=== PATIENT | female | born 1965 | race Caucasian/White ===

== ENCOUNTER 2019-03-24 22:56 | Emergency (ER) | payer OTHER, SELFPAY ==
[2019-03-24 23:00] VITALS: BP 157/76; PULSE 92; RESP 18; TEMP 36.2; O2SAT 100
[2019-03-25 00:48] VITALS: BP 142/81; PULSE 96; RESP 20; O2SAT 99
--- NOTE | 2019-03-25 01:02 | ED.SKABFB ---
HPI - Skin/Abscess/Foreign Bdy General Chief complaint: Skin/Abscess/Foreign Body Stated complaint: rectal morton Time Seen by Provider: 03/25/19 01:01 Source: patient and RN notes reviewed Mode of arrival: ambulatory Limitations: no limitations History of Present Illness HPI narrative: A 53 y/o female presents to the ED with a constant, painful, worsening, rectal abscess beginning yesterday. She reports that walking, laying down, and sitting all aggravate the pain. She denies anything alleviating the pain. She also denies any rectal bleeding, constipation, N/V/D, ABD pain, CP, vaginal bleeding, vaginal discharge, or dysuria. complaint: abscess/boil Onset (ago): day(s) (yesterday) Location: buttocks (rectum) Pain Consistency: constant (worsening) Relieving factors: none Exacerbating factors: other (walking, laying down, and sitting) Associated symptoms: denies other symptoms Related Data Home Medications Medication Instructions Recorded Confirmed simvastatin 20 mg tablet 20 mg PO DAILY 01/13/19 Allergies Allergy/AdvReac Type Severity Reaction Status Date / Time adhesive tape Allergy Mild Rash Verified 03/17/19 10:18 levofloxacin Allergy Unknown Tremor Verified 03/17/19 10:18 Review of Systems Review of Systems: All systems reviewed & are unremarkable except as noted in HPI and below Cardiovascular: Cardiovascular: Denies chest pain Gastrointestinal: Gastrointestinal: Denies abdominal pain, Denies hematochezia, Denies constipation, Denies diarrhea, Denies nausea, Denies vomiting and Reports other (painful rectal abscess) Genitourinary: Genitourinary: Denies abnormal vaginal bleeding, Denies dysuria and Denies vaginal discharge [facility] Past Medical History Medical History (Updated 03/25/19 @ 01:47 by Manuel May MD) Anxiety Body mass index (BMI) of 50-59.9 in adult (11/25/18) Elevated hemoglobin Essential hypertension Hyperlipidemia Recurrent candidiasis of vagina Uncontrolled type 2 diabetes mellitus with hyperglycemia Surgical History Surgical History (Updated 03/25/19 @ 01:15 by Russel Guillen) History of hysterectomy Hx of laparoscopic gastric banding Hx of toe surgery Previous section Status post panniculectomy Family History Family History Mother Family history of thyroid disease Diabetes mellitus Family history of malignant neoplasm of thyroid Father Carcinoma of colon Social History Social History Smoking status: Never smoker Second hand tobacco smoke exposure: No Alcohol intake: never Gender identity (if verbalized by the patient): Female Exam Narrative: Exam Narrative: GENERAL: Well-appearing, obese, and in no acute distress. HEAD: Normocephalic, atraumatic. Rectal: External hemorrhoid that is nonthrombosed and nonbleeding at the 12 o'clock position when laying in the right lateral decubitus position. No cellulitis/induration/tenderness of the buttock. Hemorrhoid itself is tender to touch. EXTREMITIES: Normal range of motion. Normal strength. SKIN: Warm, dry, no rash. NEURO: Alert and oriented x3. PSYCH: Normal mood and affect. Course Course Emergency Course: Informed of diagnosis and treatment plan. Patient verbalized understanding. Vital Signs Vital signs: Vital Signs Temperature 97.2 F L 03/24/19 23:00 Pulse Rate 92 03/24/19 23:00 Respiratory Rate 18 03/24/19 23:00 Blood Pressure 157/76 H 03/24/19 23:00 Pulse Oximetry 100 03/24/19 23:00 Temperature 97.2 F L 03/24/19 23:00 Pulse Rate 96 03/25/19 00:48 Respiratory Rate 20 03/25/19 00:48 Blood Pressure 142/81 H 03/25/19 00:48 Pulse Oximetry 99 03/25/19 00:48 Discharge Plan Discharge Clinical Impression: External hemorrhoids Patient Disposition: Home, Self-Care Condition: Stable Instructions: Hemorrhoids (ED) Additional Instructions: Return to the ER if you have
[2019-03-25 02:07] VITALS: BP 132/71; PULSE 70; RESP 18; O2SAT 99
== END 2019-03-25 02:10 | disposition home or self-care (01) ==
PROVIDERS: Emergency Provider Emergency Medicine; PCP Family Medicine
DX: K64.4 Residual hemorrhoidal skin tags (principal); I10 Essential (primary) hypertension; E78.5 Hyperlipidemia, unspecified; Z98.84 Bariatric surgery status; F41.9 Anxiety disorder, unspecified
CPT/HCPCS: 99283

== ENCOUNTER 2019-06-01 15:48 | Outpatient (CLI) | payer OTHER, SELFPAY ==
--- NOTE | ~2019-06-01 | XR_ITS ---
EXAMINATION: XR knee LT 3V EXAM DATE: 06/01/2019 16:22 INDICATION: No known recent injury provided at this time. Pain of the left knee. TECHNIQUE: Three projections of the left knee. There is no prior study for comparison. FINDINGS: No evidence osteochondral defect or joint body in the left knee joint. There is moderate left knee primary osteoarthritis. There are no acute fractures or dislocations identified. There is no subcutaneous gas. The soft tissue is unremarkable. There are no radiopaque foreign bodies. IMPRESSION: Moderate left knee osteoarthritis. Reviewed, dictated and finalized at location A.
== END 2019-06-01 15:49 | disposition home or self-care (01) ==
LOC: ANHIMG 15:50
PROVIDERS: PCP Family Medicine; Visit Provider Nurse Practitioner Family
DX: M25.562 Pain in left knee (principal); M17.12 Unilateral primary osteoarthritis, left knee
CPT/HCPCS: 73562

== ENCOUNTER 2020-04-02 09:15 | Outpatient (CLI) | payer OTHER, SELFPAY ==
--- NOTE | ~2020-04-02 | XR_ITS ---
XR foot RT 2V DATE: 04/02/2020 09:39 INDICATION: Pain at fifth toe. No injury. TECHNIQUE: AP and lateral views COMPARISON: None FINDINGS: There is plantar and posterior calcaneal enthesopathy. There is mild osteoarthritic change at the first metatarsophalangeal joint. No fracture or dislocation, periosteal reaction or bone destruction is evident. Extensive soft tissue calcification is noted in the lower leg. IMPRESSION: Extensive lower leg soft tissue calcification Plantar and posterior calcaneal enthesopathy Osteoarthritic change at first metatarsophalangeal joint Reviewed, dictated and finalized at location A. 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
[2020-04-02 09:50] LABS: Basophils Absolute Auto 0.1 K/mm3 (0.0-0.1); Basophils Percent Auto 0.9 % (0.2-1.2); Eosinophils Absolute Auto 0.4 K/mm3 (0-0.3); Eosinophils Percent Auto 5.6 % (0-4.4); Hematocrit 44.7 % (37.0-47.0); Hemoglobin 14.9 g/dL (12.0-15.0); Immature Granulocyte Absolute 0.05 K/mm3 (0.00-0.031); Immature Granulocyte Percent A 0.6 % (0-0.5); Lymphocytes Absolute Auto 2.25 K/mm3 (0.9-3.2); Lymphocytes Percent Auto 28.8 % (18.3-44.2); Mean Corpuscular HGB Conc 33.3 g/dl (32-36); Mean Corpuscular Hemoglobin 28.7 pg (26-34); Mean Platelet Volume 9.4 fl (7.4-10.4); Monocytes Absolute Auto 0.4 K/mm3 (0.1-0.6); Monocytes Percent Auto 4.6 % (2.6-8.5); Neutrophils Absolute Auto 4.7 K/mm3 (1.3-6.7); Neutrophils Percent Auto 59.5 % (45.5-73.1); Platelet Count Result 331 k/mm3 (150-375); Red Cell Distribution Width 13.4 % (11.5-14.5); White Blood Count 7.8 K/mm3 (4.5-10.0)
[2020-04-02 10:35] LABS: Uric Acid 3.3 mg/dL (2.5-7.5)
== END 2020-04-02 09:16 | disposition home or self-care (01) ==
PROVIDERS: PCP Family Medicine; Visit Provider Nurse Practitioner Family
DX: S91.106A Unspecified open wound of unspecified lesser toe(s) without damage to nail, initial encounter (principal); M19.071 Primary osteoarthritis, right ankle and foot
CPT/HCPCS: 36415; 73620; 84550; 85025

== ENCOUNTER 2020-06-11 07:59 | Emergency (ER) | payer OTHER, SELFPAY ==
--- NOTE | ~2020-06-11 | CT_ITS ---
EXAMINATION: CT brain wo con INDICATION: Head injury COMPARISON: None TECHNIQUE: Standard unenhanced head CT. The dose-length product (DLP) was 605.33 mGy-cm. The mA was a djusted according to patient size. Iterative reconstruction technique was employed. FINDINGS: There is no intracranial hemorrhage, acute infarction, or abnormal mass lesion. The ventric les are normal. There is no abnormal mass effect or midline shift. The camp-white matter differentiat ion is normal. The basal cisterns are patent. The orbits are normal. There are a few scattered scalp soft tissue calcifications. There is mild mucosal thickening of the paranasal sinuses. IMPRESSION: 1. No acute intracranial abnormality. Reviewed, dictated and finalized at location A.
[2020-06-11 08:10] VITALS: BP 150/82; PULSE 69; RESP 18; TEMP 36.1; O2SAT 99
[2020-06-11] MEDS: HYDROcodone/acetaminophen (*CRX) 5-325 MG TABLET 1 TAB PO (08:27)
--- NOTE | 2020-06-11 09:47 | ED.GENADULT ---
HPI - General Adult General Chief complaint: Fall Stated complaint: fall/headache/nausea Time Seen by Provider: 06/11/20 08:05 History of Present Illness HPI narrative: Patient is a 54-year-old female who presents ER with headache as well as nausea. Patient had a slip and fall from standing while walking down the hallway 2 days ago. She fell and struck her head. Did not lose consciousness. Since then the symptoms have persisted. Symptoms are worse if she is working or looking in bright light. No improvement with ibuprofen or Tylenol. No fevers or chills or sweats. No change in vision. She has no numbness or tingling in extremity. She does not take any blood thinners. Related Data Home Medications Medication Instructions Recorded Confirmed sitagliptin 100 mg tablet 100 mg PO DAILY 04/02/20 04/02/20 Allergies Allergy/AdvReac Type Severity Reaction Status Date / Time adhesive tape Allergy Mild Rash Verified 06/11/20 08:19 levofloxacin AdvReac Unknown Tremor Verified 06/11/20 08:19 Review of Systems Review of Systems: All systems reviewed & are unremarkable except as noted in HPI and below Constitutional: Constitutional: Denies chills, Denies fever(s) and Denies weakness Eyes: Eyes: Denies change in vision and Reports photophobia Gastrointestinal: Gastrointestinal: Reports nausea and Denies vomiting Neurologic: Denies dizziness, Denies syncope, Reports headache(s), Denies focal weakness and Denies numbness PMF Past Medical History Medical History Anxiety Body mass index (BMI) of 50-59.9 in adult (11/25/18) Elevated hemoglobin Essential hypertension Hyperlipidemia Morbid (severe) obesity due to excess calories Recurrent candidiasis of vagina Uncontrolled type 2 diabetes mellitus with hyperglycemia Surgical History Surgical History History of hysterectomy Hx of laparoscopic gastric banding Hx of toe surgery Previous section Status post panniculectomy Family History Family History Mother Family history of thyroid disease Diabetes mellitus Family history of malignant neoplasm of thyroid Stage 4 chronic kidney disease CHF (congestive heart failure) Anemia Father Carcinoma of colon Sibling No problems noted. 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 HEAD: Normocephalic, atraumatic. EYES: PERRL and EOMI. CHEST: Clear to auscultation. No respiratory distress. HEART: Regular rate and rhythm. Normal peripheral pulses. EXTREMITIES: Normal range of motion. No edema. NEURO: Alert and oriented x3. Clear speech. PSYCH: Normal mood and affect. Course Course Emergency Course: Unremarkable evaluation. Discharge home. Vital Signs Vital signs: Vital Signs Temperature 97 F L 06/11/20 08:10 Pulse Rate 69 06/11/20 08:10 Respiratory Rate 18 06/11/20 08:10 Blood Pressure 150/82 H 06/11/20 08:10 Pulse Oximetry 99 06/11/20 08:10 Temperature 97 F L 06/11/20 08:10 Pulse Rate 57 L 06/11/20 09:54 Respiratory Rate 18 06/11/20 09:54 Blood Pressure 135/81 06/11/20 09:54 Pulse Oximetry 100 06/11/20 09:54 Medical Decision Making Vital Signs Vital Signs: Vital Signs Temperature 97 F L 06/11/20 08:10 Pulse Rate 69 06/11/20 08:10 Respiratory Rate 18 06/11/20 08:10 Blood Pressure 150/82 H 06/11/20 08:10 Pulse Oximetry 99 06/11/20 08:10 Temperature 97 F L 06/11/20
[2020-06-11 09:54] VITALS: BP 135/81; PULSE 57; RESP 18; O2SAT 100
== END 2020-06-11 09:55 | disposition home or self-care (01) ==
PROVIDERS: Emergency Provider Emergency Medicine; PCP Family Medicine
DX: S06.0X0A Concussion without loss of consciousness, initial encounter (principal); F41.9 Anxiety disorder, unspecified; I10 Essential (primary) hypertension; E11.9 Type 2 diabetes mellitus without complications; W01.0XXA Fall on same level from slipping, tripping and stumbling without subsequent striking against object, initial encounter
CPT/HCPCS: 70450; 99284; A9270

== ENCOUNTER 2022-07-23 14:42 | Outpatient (CLI) | payer OTHER, SELFPAY ==
--- NOTE | ~2022-07-23 | US_ITS ---
EXAMINATION: US venous doppler UE RT DATE: 07/23/2022 15:14 INDICATION: Palpable lump TECHNIQUE: De La Paz scale images with and without compression and Doppler images of the right upper extre mity veins were obtained. COMPARISON: None. FINDINGS: The right internal jugular vein, subclavian vein, axillary vein, brachial veins, basilic vein, cephal ic vein, radial vein, and ulnar vein are patent. Adjacent to the right radial artery there is a hypoe choic mass measuring 1.4 x 1.2 x 1.1 cm with marginal vascularity, possibly small hematoma. IMPRESSION: 1. Patent right upper extremity veins. No evidence of deep venous thrombosis. 2: Small hypoechoic mass measuring up to 1.4 cm adjacent to the radial artery, suspicious for hematom a or seroma. Recommend follow-up ultrasound as clinically indicated. Reviewed, dictated and finalized at location . IMPRESSION: 1. Patent right upper extremity veins. No evidence of deep venous thrombosis. 2: Small hypoechoic mass measuring up to 1.4 cm adjacent to the radial artery, suspicious for hematoma or seroma. Recommend follow-up ultrasound as clinically indicated.
== END 2022-07-23 14:43 | disposition home or self-care (01) ==
LOC: ANHIMG 14:44
PROVIDERS: PCP Family Medicine; Visit Provider Orthopaedic Surgery
DX: M25.531 Pain in right wrist (principal); I77.89 Other specified disorders of arteries and arterioles
CPT/HCPCS: 93971

== ENCOUNTER 2022-08-07 16:12 | Outpatient (CLI) | payer OTHER, SELFPAY ==
--- NOTE | ~2022-08-07 | MR_ITS ---
EXAMINATION: MR wrist RT wo/w con DATE: 08/07/2022 17:15 INDICATION: Right wrist mass TECHNIQUE: Magnetic resonance imaging (MRI) of the right wrist was performed without intravenous cont rast. Sequences performed include axial, sagittal and coronal T1-weighted FSE and T2-weighted FS FSE, axial T1-weighted FS FSE and axial, sagittal and coronal T1-weighted FS FSE. COMPARISON: None FINDINGS: Intrinsic ligaments: The scapholunate and lunotriquetral ligaments are normal. Triangular fibrocartilage complex (TFCC): The triangular fibrocartilage and its radial, foveal and styloid attachments are normal. Partial tear of the dorsal radioulnar ligament. The volar radioulnar ligament is normal. The extensor carpi ulnar is tendon sheath is normal. Extensor wrist: Extensor tendons of the wrist are normal. Small amount of fluid in the second dorsal compartment at t he level of the wrist joint consistent with mild tenosynovitis. Flexor wrist: The flexor tendons of the wrist are normal. There appears to be significant compression of the median nerve at the carpal tunnel with significant decrease in the cross-sectional area of the nerve the le tahmina of the tunnel relative to the nerve both proximally and distally. Guyon's canal: Guyon's canal including the ulnar nerve and artery are normal. Bones/other: 3 mm ulnar minus variance. Bone alignment is normal. No fracture, erosions, avascular necrosis or abn ormal marrow replacing process. Mild osteoarthritis at the distal radioulnar, radiocarpal, midcarpal, triscaphe and first carpal metacarpal joints. Mild subarticular edema-like signal change at the boy te along its midcarpal joint and scaphoid articular surfaces. Low signal intensity bone island at the radial styloid process. There is a large multilobulated ganglion cyst arising from the midcarpal joint which tracks proximall y and radially along the volar radiolunate and radioscaphoid capitate ligaments and into the subcutan eous tissues at the volar/radial aspect of the wrist. The cyst extends over a region measuring approx imately 2.3 cm medial collateral and 1.1 x 1.2 cm in maximal orthogonal dimensions. There is curvilin ear synovial enhancement along the day and internal septations of the cyst. This underlies the kiley er indicating the mass of concern. No solid enhancing soft tissue component or other abnormally enhan cing lesions identified. IMPRESSION: 1. 2.3 x 1.1 x 1.2 cm multilobulated ganglion cyst which appears to arise from the midcarpal joint an d extends volar to the radial styloid process underlying the marker indicating the lesion of concern. 2. Partial tear of the dorsal radioulnar ligament of the triangular fibrocartilage complex. 3. Mild tenosynovitis in the second dorsal compartment surrounding the normal extensor carpi radialis longus and brevis tendons. 4. Significant thinning of the median nerve at the level of the carpal tunnel which could be seen in the setting of carpal tunnel syndrome. Correlate for signs/symptoms of carpal tunnel syndrome. 5. Mild polyarticular osteoarthritis at the right wrist and carpus. Reviewed, dictated and finalized at location A. IMPRESSION: 1. 2.3 x 1.1 x 1.2 cm multilobulated ganglion cyst which appears to arise from the midcarpal joint and extends volar to the radial styloid process underlying the marker indicating the lesion of concern. 2. Partial tear of the dorsal radioulnar ligament of the triangular fibrocartil age complex. 3. Mild tenosynovitis in the second dorsal compartment surrounding the normal e xtensor carpi radialis longus and brevis tendons. 4. Significant thinning of the median nerve at the level of the carpal tunnel w hich could be seen in the setting of carpal tunnel syndrome. Correlate for sign s/symptoms of
== END 2022-08-07 16:13 | disposition home or self-care (01) ==
PROVIDERS: PCP Family Medicine; Visit Provider Orthopaedic Surgery
DX: M67.431 Ganglion, right wrist (principal); S63.591A Other specified sprain of right wrist, initial encounter; M65.9 Synovitis and tenosynovitis, unspecified; M15.9 Polyosteoarthritis, unspecified
CPT/HCPCS: 73223; A9577

== ENCOUNTER 2022-08-26 08:00 | Outpatient (CLI) | payer OTHER, SELFPAY ==
--- NOTE | ~2022-08-26 | US_ITS ---
EXAMINATION: US art doppler w press UE BI DATE: 08/26/2022 08:58 INDICATION: Peripheral vascular disease. Pain in right wrist. TECHNIQUE: Segmental pressures and plethysmographic and Doppler waveforms of the upper extremity patricia sheyla were obtained. COMPARISON: None. FINDINGS: Right and left brachial artery pressures of 137 mm Hg and 147 mm Hg, respectively, are concordant (no rmal difference <= 30 mmHg). The right finger:brachial systolic pressure ratio is 0.93 (normal > 0.8) . Arterial Doppler waveforms demonstrate normal upstroke (normal upstroke < 0.2 s). The left finger:brachial systolic pressure ratio is 0.78. Arterial Doppler waveforms demonstrate norm al upstroke. IMPRESSION: 1. No significant right-sided arterial occlusive disease. 2. Mildly decreased left finger:brachial artery pressure index, consistent with left-sided arterial o cclusive disease. Reviewed, dictated and finalized at location A. IMPRESSION: 1. No significant right-sided arterial occlusive disease. 2. Mildly decreased left finger:brachial artery pressure index, consistent with left-sided arterial occlusive disease.
== END 2022-08-26 08:01 | disposition home or self-care (01) ==
PROVIDERS: PCP Family Medicine; Visit Provider Orthopaedic Surgery
DX: M25.531 Pain in right wrist (principal)
CPT/HCPCS: 93923

== ENCOUNTER 2022-12-22 12:39 | Emergency (ER) | payer OTHER, SELFPAY ==
[2022-12-22] VITALS (14 sets, daily range): BP systolic 133–150; BP diastolic 63–76; PULSE 68–84; RESP 13–24; TEMP 36.2; O2SAT 96–100
--- NOTE | ~2022-12-22 | US_ITS ---
EXAMINATION: US abdomen limited DATE: 12/22/2022 18:36 INDICATION: abdominal pain TECHNIQUE: Multiple grayscale and Doppler ultrasound images of limited portions of the abdomen were o btained. COMPARISON: CT abdomen and pelvis same date. FINDINGS: The visualized portions of the pancreas are normal. The liver is enlarged with increased ec hogenicity and normal echotexture. No surface nodularity. Normal hepatopetal flow in the main portal vein. 7 mm gallbladder polyp, no follow-up suggested at this time. The gallbladder is otherwise chrystal l with no abnormal wall thickening, pericholecystic fluid or stones. The common bile duct measures 4 mm. There was no sonographic [place] sign. IMPRESSION: Hepatic steatosis. No sonographic evidence of cholecystitis. 7 mm gallbladder polyp, for which no further follow-up is suggested at this time. Reviewed, dictated and finalized at location K. LY ROOM CLERK IMPRESSION: Hepatic steatosis. No sonographic evidence of cholecystitis. 7 mm gallbladder polyp, for which no further follow-up is suggested at this angela eThao
--- NOTE | ~2022-12-22 | CT_ITS ---
EXAMINATION: CT abdomen pelvis w con DATE: 12/22/2022 15:54 INDICATION: Abdominal pain TECHNIQUE: Computed tomography (CT) of the abdomen and pelvis was performed with 100 CC Omnipaque 350 intravenous contrast. Automated exposure control and iterative reconstruction technique were employe d. Exam dose: 1625.14 mGy-cm total exam DLP. COMPARISON: None. FINDINGS: The lung bases are clear. Normal heart size. No pericardial or pleural effusion. Diffuse hepatic steatosis. No hepatic space-occupying mass lesion is evident. The gallbladder is pres ent. Variable density within the gallbladder suggests possible cholelithiasis; gallbladder ultrasound is recommended for more definitive confirmation or exclusion of gallstones. No gallbladder wall thic kening or pericholecystic fluid or fat stranding is evident. No bile duct dilatation. No pancreatic mass lesion, calcification or pancreatic duct dilatation. Normal splenic size. Normal morphology of the adrenal glands. No renal mass lesion. No urinary tract calculus or hydroureteronephrosis. Normal caliber of the abdominal aorta. No intraperitoneal or retroperitoneal or pelvic mass lesion or adenopathy or ascites. Status post hysterectomy. The urinary bladder is unremarkable. Unremarkable left ovary. Percutaneous inflatable cuff around the proximal stomach. No bowel obstruction, bowel wall thickening, pneumatosis or intraperitoneal free air. Multiple surgical clips along the anterior lower abdominal wall. Multiple small fat-containing ventra l abdominal wall hernias. Diffuse idiopathic skeletal hyperostosis of the thoracic spine. Multi-level degenerative disc disease of the lumbar spine. Degenerative changes apophyseal joints is noted at multiple levels with grade 1 anterolisthesis at L4-5. IMPRESSION: Diffuse hepatic steatosis Possible cholelithiasis; consider gallbladder ultrasound for more definitive confirmation or exclusio n of gallstones Status post hysterectomy Multiple small ventral lower abdominal wall fat-containing hernias Reviewed, dictated and finalized at [facility]. Reviewed, dictated and finalized at location [facility]. ING INSPECTOR IMPRESSION: Diffuse hepatic steatosis Possible cholelithiasis; consider gallbladder ultrasound for more definitive co nfirmation or exclusion of gallstones Status post hysterectomy Multiple small ventral lower abdominal wall fat-containing hernias
[2022-12-22 13:03] LABS: Basophils Absolute Auto 0.1 K/mm3 (0.0-0.1); Basophils Percent Auto 0.5 % (0.2-1.2); Eosinophils Absolute Auto 0.4 K/mm3 (0-0.3); Eosinophils Percent Auto 2.9 % (0-4.4); Hematocrit 43.6 % (37.0-47.0); Hemoglobin 14.2 g/dL (12.0-15.0); Immature Granulocyte Absolute 0.07 K/mm3 (0.00-0.031); Immature Granulocyte Percent A 0.5 % (0-0.5); Lymphocytes Absolute Auto 2.25 K/mm3 (0.9-3.2); Lymphocytes Percent Auto 15.8 % (18.3-44.2); Mean Corpuscular HGB Conc 32.6 g/dl (32-36); Mean Corpuscular Hemoglobin 28.8 pg (26-34); Mean Corpuscular Volume 88.4 fl (80-100); Mean Platelet Volume 9.3 fl (7.4-10.4); Monocytes Absolute Auto 0.8 K/mm3 (0.1-0.6); Monocytes Percent Auto 5.7 % (2.6-8.5); Neutrophils Absolute Auto 10.6 K/mm3 (1.3-6.7); Neutrophils Percent Auto 74.6 % (45.5-73.1); Platelet Count Result 307 k/mm3 (150-375); Red Blood Count 4.93 M/mm3 (4.2-5.4); Red Cell Distribution Width 14.4 % (11.5-14.5); White Blood Count 14.3 K/mm3 (4.5-10.0)
[2022-12-22 13:12] LABS: Alanine Aminotransferase 25 U/L (6-35); Alkaline Phosphatase 103 U/L (38-126); Anion Gap 10 mmol/L (8-16); Aspartate Amino Transferase 22 U/L (14-36); Bilirubin,Total 0.7 mg/dL (0.2-1.3); Blood Urea Nitrogen 14 mg/dL (7-17); Carbon Dioxide 23 mmol/L (22-30); Chloride 102 mmol/L (98-107); Estimated CRCL calculation 138 ml/min; Estimated Glomerular Filt Rate > 60; Glucose 197 mg/dL (65-110); Lipase 101 U/L (23-300); Potassium 4.4 mmol/L (3.4-5.0); Sodium 135 mmol/L (137-145)
--- NOTE | 2022-12-22 14:30 | ED.GENADULT ---
HPI - General Adult General Chief complaint: Abdominal Pain <Roxane Apodaca APRN - Last Filed: 12/22/22 14:32> Stated complaint: abd pain, n/d <Roxane Apodaca GI PHYSICIAN - Last Filed: 12/22/22 14:32> Time Seen by Provider: 12/22/22 21:07 <Roxane Apodaca GI PHYSICIAN - Last Filed: 12/22/22 14:32> Source: patient <Ariadna Man PA-C - Last Filed: 12/22/22 23:20> Mode of arrival: ambulatory <Ariadna Man PA-C - Last Filed: 12/22/22 23:20> Limitations: no limitations <Ariadna Man PA-C - Last Filed: 12/22/22 23:20> History of Present Illness HPI narrative: Kateryna Wei is a 57 y/o female who reports she was in her normal state of health until she woke up this AM wtih severe lower abdominal pain with hematuria/ reports nausea/ no vomiting. Last BM was today and was normal. Denies fevers but reports feeling cold. Reports her lower abdominal pain has been getting worse since this morning. <Roxane Laurent June - Last Filed: 12/22/22 14:32> Kateryna Wei is a 57 y/o female who reports she was in her normal state of health until she woke up this AM wtih severe lower abdominal pain with hematuria/ reports nausea/ no vomiting. Last BM was today and was normal. Denies fevers but reports feeling cold. Reports her lower abdominal pain has been getting worse since this morning. Describes pain as a burning sensation. Denies rectal bleeding, vaginal bleeding. She has not taken anything for pain. <Ariadna Man PA-C - Last Filed: 12/22/22 23:20> Related Data Home medications: Home Medications Medication Instructions Recorded Confirmed nystatin 100,000 unit/gram topical 1 applic topical TID PRN 07/21/22 11/02/22 ointment ubrogepant 100 mg tablet (Ubrelvy) 100 mg PO ONCE PRN 07/21/22 11/02/22 <Roxane Apodaca APRN - Last Filed: 12/22/22 14:32> Allergies/adverse reactions: Allergies Allergy/AdvReac Type Severity Reaction Status Date / Time adhesive tape Allergy Mild Rash Verified 12/22/22 12:42 milk Allergy Unknown Unknown Verified 12/22/22 12:42 levofloxacin AdvReac Unknown Tremor Verified 12/22/22 12:42 <Roxane Apodaca, GI PHYSICIAN - Last Filed: 12/22/22 14:32> Review of Systems Review of Systems: CONSTITUTIONAL: Denies fever, chills, or sweats. CARDIOVASCULAR: Denies chest pain, palpitations, or edema. RESPIRATORY: Denies cough or dyspnea. GASTROINTESTINAL: See HPI GENITOURINARY: See HPI. SKIN: Denies rash or itching. MUSCULOSKELETAL: Denies back pain, joint pain, or myalgia. <Ariadna Man PA-C - Last Filed: 12/22/22 23:20> All systems reviewed & are unremarkable except as noted in HPI and below <Ariadna Man PA-C - Last Filed: 12/22/22 23:20> [facility] Past Medical History Medical History: Medical History Anxiety Arthritis BMI 45.0-49.9, adult Body mass index (BMI) of 50-59.9 in adult (11/25/18) Diabetes Elevated hemoglobin Essential hypertension Ganglion cyst of volar aspect of right wrist Hyperlipidemia Morbid (severe) obesity due to excess calories Recurrent candidiasis of vagina Screen for colon cancer Uncontrolled type 2 diabetes mellitus with hyperglycemia <Roxane Laurent June,N - Last Filed: 12/22/22 14:32> Surgical History Surgical History: Surgical History H/O lumpectomy History of hysterectomy Hx of laparoscopic gastric banding Hx of toe surgery Previous section Status post panniculectomy <Roxane Apodaca, GI PHYSICIAN - Last Filed: 12/22/22 14:32> Family History Family History: Family History Mother Family history of thyroid disease Diabetes mellitus Family history of malignant neoplasm of thyroid Stage 4 chronic kidney disease CHF (congestive heart failure) Anemia Cancer Hypertension Father Carcinom
[2022-12-22 15:52] LABS: Lactic Acid Reflex 1.7 mmol/L (0.7-2.0)
[2022-12-22 16:05] LABS: Bacteria Urine 4+ /hpf; Budding Yeast Urine Present /hpf; Need Manual Microscopic Reviewed; Non Pathogenic Casts 0-2; RBC Urine >100 /hpf (0-2); Squamous Epithelial Cell Urine Occasional /hpf (Few); WBC Urine >100 /hpf
[2022-12-22 16:06] LABS: Appearance Urine Turbid (Clear); Bilirubin Urine 1+ (Negative); Blood Urine 3+ (Negative); Glucose Urine UA Trace mg/dL (Negative); Ketones Urine Negative (Negative); Leukocyte Esterase Ur 2+ LEU/UL (Negative); Nitrate Urine Positive (Negative); Protein Urine 2+ mg/dL (Negative); Specific Grav Ur 1.022 (1.001-1.035); pH Urine 5.5 (5.0-9.0)
[2022-12-22 16:07] LABS: Add Urine Microscopic? YES; Color Urine Dark Yellow (Yellow)
--- NOTE | 2022-12-22 21:51 | ED.ABDPAIN ---
HPI - Abdominal Pain General Chief Complaint: Abdominal Pain Stated Complaint: abd pain, n/d Time Seen by Provider: 12/22/22 21:07 Source: patient Mode of arrival: ambulatory Limitations: no limitations Related Data Home Medications Medication Instructions Recorded Confirmed nystatin 100,000 unit/gram topical 1 applic topical TID PRN 07/21/22 11/02/22 ointment ubrogepant 100 mg tablet (Ubrelvy) 100 mg PO ONCE PRN 07/21/22 11/02/22 Allergies Allergy/AdvReac Type Severity Reaction Status Date / Time adhesive tape Allergy Mild Rash Verified 12/22/22 12:42 milk Allergy Unknown Unknown Verified 12/22/22 12:42 levofloxacin AdvReac Unknown Tremor Verified 12/22/22 12:42 PMF Past Medical History Medical History (Updated 11/02/22 @ 18:04 by Charles Sadler MD) Anxiety Arthritis BMI 45.0-49.9, adult Body mass index (BMI) of 50-59.9 in adult (11/25/18) Diabetes Elevated hemoglobin Essential hypertension Ganglion cyst of volar aspect of right wrist Hyperlipidemia Morbid (severe) obesity due to excess calories Recurrent candidiasis of vagina Screen for colon cancer Uncontrolled type 2 diabetes mellitus with hyperglycemia Surgical History Surgical History H/O lumpectomy History of hysterectomy Hx of laparoscopic gastric banding Hx of toe surgery Previous section Status post panniculectomy Family History Family History Mother Family history of thyroid disease Diabetes mellitus Family history of malignant neoplasm of thyroid Stage 4 chronic kidney disease CHF (congestive heart failure) Anemia Cancer Hypertension Father Carcinoma of colon Cancer Sibling Skin cancer Cancer Grandparent Cancer Family history of thyroid disease Social History Social History Smoking status: Never smoker Second hand tobacco smoke exposure: No Alcohol intake: never Substance use: never Substance use type: does not use Lack of Transportation: No Lack of Food: Never True Current Housing: I Have Housing Concerned About Future Housing: No Difficulty Paying Gas/Electric Bills: YES Difficulty Paying for Meds: YES Currently Unemployed: No Education: Associate Degree Difficulty w/ Childcare or Family Care: No Living arrangements: with family Occupation/Education: occupation 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 (if verbalized by the patient): Female Course Vital Signs Vital signs: Vital Signs Temperature 97.1 F L 12/22/22 12:40 Pulse Rate 76 12/22/22 12:40 Respiratory Rate 16 12/22/22 12:40 Blood Pressure 150/76 H 12/22/22 12:40 Pulse Oximetry 100 12/22/22 12:40 Oxygen Delivery Room Air 12/22/22 12:40 Temperature 97.1 F L 12/22/22 12:40 Pulse Rate 79 12/22/22 21:16 Respiratory Rate 21 H 12/22/22 21:16 Blood Pressure 139/66 12/22/22 21:16 Pulse Oximetry 97 12/22/22 21:16 Oxygen Delivery Room Air 12/22/22 12:40 MDM - Abdominal Pain Lab Data 12/22/22 12:55 12/22/22 12:55 Labs: Lab Results 12/22/22 12/22/22 Range/Units 12:55 15:31 WBC 14.3 H (4.5-10.0) K/mm3 RBC 4.93 (4.2-5.4) M/mm3 Hgb 14.2 (12.0-15.0) g/dL Hct 43.6 (37.0-47.0) % MCV 88.4 (80-100) fl MCH 28.8 (26-34) pg MCHC 32.6 (32-36) g/dl RDW 14.4 (11.5-14.5) % Plt Count 307 (150-375) k/mm3 MPV 9.3 (7.4-10.4) fl Immature Gran % (Auto) 0.5 (0-0.5) % Neut % (Auto) 74.6 H (45.5-73.1) % Lymph % (Auto) 15.8 L (18.3-44.2) % Valley % (Auto) 5.7 (2.6-8.5) % Eos % (Auto) 2.9 (0-4.4) % Baso % (Auto) 0.5 (0.2-1.2) % Lymph # (Auto) 2.25 (0.9-3.2) K/mm3 Valley # (Auto) 0.8 H (0.1-0.6) K/mm3 Eos # (Auto) 0.4 H (0-0.3) K/mm3
[2022-12-22] MEDS: ONDANSETRON INJ 4 MG/2 ML VIAL IV PUSH (21:58)
[2022-12-22] MEDS: MORPHINE SULFATE (*CRX) 4 MG/ML INJ IV PUSH (21:58)
[2022-12-22] MEDS: SODIUM CHLORIDE 0.9% IV 1,000 ML 999 ML IV CONT (21:59)
--- NOTE | 2022-12-22 23:03 | PC.NURSE ---
pt care and report given to REBEKAH Desai. all questions answered.
== END 2022-12-23 00:15 | disposition home or self-care (01) ==
PROVIDERS: Emergency Medicine; Nurse Practitioner Family; Emergency Provider Physician Assistant; PCP Family Medicine
DX: N30.01 Acute cystitis with hematuria (principal); R10.30 Lower abdominal pain, unspecified; I10 Essential (primary) hypertension; E78.5 Hyperlipidemia, unspecified; E11.9 Type 2 diabetes mellitus without complications
CPT/HCPCS: 36415; 74177; 76705; 80053; 81001; 83605; 83690; 85025; 87077; 87086; 87186; 96361; 96365; 96375; 99284; J0696; J2270; J2405; J7030; Q9967

== ENCOUNTER 2023-02-16 16:05 | Emergency (ER) | payer OTHER, SELFPAY ==
--- NOTE | ~2023-02-16 | XR_ITS ---
EXAM: XR hand LT min 3V, XR forearm LT 2V DATE: 02/16/2023 16:28 HISTORY: fall this A.M., left hand pain . COMPARISON: None available. FINDINGS: Normal mineralization. No fracture or dislocation. No lytic or blastic lesion. Mild scatte red degenerative changes in the elbow wrist and hand. No erosion or periosteal change. Soft tissues w ithin normal limits. IMPRESSION: No acute osseous finding in the left forearm or left wrist. If clinical symptoms or mechanism of injury suggest wrist or elbow injury, consider dedicated radiogr aphs of those specific joints. Reviewed, dictated and finalized at location [facility]. TRICIAN HELPER IMPRESSION: No acute osseous finding in the left forearm or left wrist. If clinical symptoms or mechanism of injury suggest wrist or elbow injury, cons ider dedicated radiographs of those specific joints.
[2023-02-16 16:18] VITALS: BP 168/89; PULSE 76; RESP 16; TEMP 36.2; O2SAT 98
--- NOTE | 2023-02-16 16:27 | ED.UPPEXIN ---
HPI - Extremity Injury (Upper) General Chief Complaint: Extremity Injury, Upper Stated Complaint: Injured arm Time Seen by Provider: 02/16/23 16:32 Source: patient and RN notes reviewed Mode of arrival: ambulatory Limitations: no limitations History of Present Illness HPI narrative: 57-year-old female presents with concern for left forearm, elbow, wrist pain. She reports she slipped this morning while letting her dogs out and fell landing on her arm. She reports when she rotates her wrist it hurts when she bends her elbow it hurts. She denies decreased strength, sensation, range of motion. Reports pain with gripping MD complaint: injury to: left, arm and elbow Related Data Home Medications Medication Instructions Recorded Confirmed ubrogepant 100 mg tablet (Ubrelvy) 100 mg PO ONCE 07/21/22 02/16/23 tirzepatide 2.5 mg/0.5 mL 2.5 mg subcut WEEKLY 02/16/23 02/16/23 subcutaneous pen injector (Mounjaro) Allergies Allergy/AdvReac Type Severity Reaction Status Date / Time adhesive tape Allergy Mild Rash Verified 02/16/23 16:13 milk Allergy Unknown Unknown Verified 02/16/23 16:13 levofloxacin AdvReac Unknown Tremor Verified 02/16/23 16:13 Review of Systems Review of Systems: CONSTITUTIONAL: Denies malaise, chills, sweats, or fever. SKIN: Denies rash or itching, open skin, laceration, abrasion, redness, warmth, swelling. MUSCULOSKELETAL: Reports left arm, wrist, elbow pain NEUROLOGIC: Denies numbness, weakness All systems reviewed & are unremarkable except as noted in HPI and below PMFSH Past Medical History Medical History Anxiety Arthritis BMI 45.0-49.9, adult Body mass index (BMI) of 50-59.9 in adult (11/25/18) Diabetes Elevated hemoglobin Essential hypertension Ganglion cyst of volar aspect of right wrist Hyperlipidemia Morbid (severe) obesity due to excess calories Recurrent candidiasis of vagina Screen for colon cancer Uncontrolled type 2 diabetes mellitus with hyperglycemia Surgical History Surgical History H/O lumpectomy History of hysterectomy Hx of laparoscopic gastric banding Hx of toe surgery Previous section Status post panniculectomy Family History Family History Mother Family history of thyroid disease Diabetes mellitus Family history of malignant neoplasm of thyroid Stage 4 chronic kidney disease CHF (congestive heart failure) Anemia Cancer Hypertension Father Carcinoma of colon Cancer Sibling Skin cancer Cancer Grandparent Cancer Family history of thyroid disease Social History Social History Smoking status: Never smoker Second hand tobacco smoke exposure: No Alcohol intake: never Substance use: never Substance use type: does not use Lack of Transportation: No Lack of Food: Never True Current Housing: I Have Housing Concerned About Future Housing: No Difficulty Paying Gas/Electric Bills: YES Difficulty Paying for Meds: YES Currently Unemployed: No Education: Associate Degree Difficulty w/ Childcare or Family Care: No Living arrangements: with family Occupation/Education: occupation 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 There is no relevant family history pertinent to the presenting complaint Exam Narrative: GENERAL: Well-appearing, well-nourished, and in no acute distress. HEAD: Normocephalic, atraumatic. EYES: PERRLA, conjunctivae clear NECK: Supple. CHEST: Speaks in full sentences. No respiratory distress. HEART: Regular rate and rhythm. Normal and equal periphera
== END 2023-02-16 16:43 | disposition home or self-care (01) ==
PROVIDERS: Emergency Provider Nurse Practitioner; PCP Family Medicine
DX: M79.632 Pain in left forearm (principal); E78.5 Hyperlipidemia, unspecified; I10 Essential (primary) hypertension; E11.9 Type 2 diabetes mellitus without complications; Z79.899 Other long term (current) drug therapy; W01.0XXA Fall on same level from slipping, tripping and stumbling without subsequent striking against object, initial encounter
CPT/HCPCS: 73090; 73130; 99213; A4565; G0463

== ENCOUNTER 2023-03-01 07:48 | Emergency (ER) | payer OTHER, SELFPAY ==
--- NOTE | ~2023-03-01 | XR_ITS ---
Right elbow Technique: AP, oblique, and lateral views were obtained. Clinical History: Pain Findings: No acute fracture or dislocation is seen. Osseous alignment is anatomic. Joint spaces are p reserved. There is no displacement of the fat pads, and soft tissues are unremarkable. Impression: Unremarkable radiographs. Reviewed, dictated and finalized at location . 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
--- NOTE | ~2023-03-01 | CT_ITS ---
EXAMINATION: CT brain wo con DATE: 03/01/2023 08:48 INDICATION: Right posterior head injury post fall TECHNIQUE: Computed tomography (CT) of the head was performed without intravenous contrast. Sagittal and coronal reconstructions were performed. The mA was adjusted according to patient size. Iterative reconstruction technique was employed. The dose-length product was 605.33 mGy-cm. COMPARISON: head CT dated 06/11/2020 FINDINGS: No fracture. No acute intracranial hemorrhage, acute infarction or abnormal extra axial fluid collect ion. Ventricles are normal and symmetric. Right parietal calcified scalp nodule most likely represent s a trichilemmal cyst. No mass/mass effect. The orbits, paranasal sinuses and mastoid air cells are n ormal. IMPRESSION: 1. No fracture or acute intracranial process. Reviewed, dictated and finalized at location [facility]. IOLOGY RN
[2023-03-01 07:50] VITALS: BP 153/73; PULSE 75; RESP 18; TEMP 36.9; O2SAT 99
[2023-03-01 08:31] VITALS: BP 148/79; PULSE 78; RESP 18; TEMP 36.7; O2SAT 96
--- NOTE | 2023-03-01 09:48 | ED.FALL ---
HPI - Fall General Chief Complaint: Fall Stated Complaint: fall Time Seen by Provider: 03/01/23 08:03 History of Present Illness HPI Narrative: 57-year-old presenting to the emergency department for evaluation after having a ground level fall on the ice. Patient states she injured her right elbow and did strike her head. Patient denies any other pain or injury Related Data Home Medications Medication Instructions Recorded Confirmed ubrogepant 100 mg tablet (Ubrelvy) 100 mg PO ONCE 07/21/22 02/22/23 Allergies Allergy/AdvReac Type Severity Reaction Status Date / Time adhesive tape Allergy Mild Rash Verified 03/01/23 07:53 milk Allergy Unknown Unknown Verified 03/01/23 07:53 levofloxacin AdvReac Unknown Tremor Verified 03/01/23 07:53 Review of Systems Review of Systems: All systems reviewed & are unremarkable except as noted in HPI and below PMFSH Past Medical History Medical History (Updated 03/01/23 @ 10:25 by Desmond Pena MD) Anxiety Arthritis BMI 45.0-49.9, adult Body mass index (BMI) of 50-59.9 in adult (11/25/18) Diabetes Elevated hemoglobin Essential hypertension Ganglion cyst of volar aspect of right wrist Hyperlipidemia Left arm pain Morbid (severe) obesity due to excess calories Recurrent candidiasis of vagina Screen for colon cancer Uncontrolled type 2 diabetes mellitus with hyperglycemia Surgical History Surgical History H/O lumpectomy History of hysterectomy Hx of laparoscopic gastric banding Hx of toe surgery Previous section Status post panniculectomy Family History Family History Mother Family history of thyroid disease Diabetes mellitus Family history of malignant neoplasm of thyroid Stage 4 chronic kidney disease CHF (congestive heart failure) Anemia Cancer Hypertension Father Carcinoma of colon Cancer Sepsis UTI Sibling Skin cancer Cancer Grandparent Cancer Family history of thyroid disease Social History Social History Smoking status: Never smoker Second hand tobacco smoke exposure: No Alcohol intake: never Substance use: never Substance use type: does not use Do You Feel Safe in your Home?: Yes Lack of Transportation: No Lack of Food: Never True Current Housing: I Have Housing Concerned About Future Housing: No Difficulty Paying Gas/Electric Bills: YES Difficulty Paying for Meds: YES Currently Unemployed: No Education: Associate Degree Difficulty w/ Childcare or Family Care: No Living arrangements: with family Occupation/Education: occupation 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 HEAD: normocephalic, no evidence of scalp injury. EYES: PERRLA/EOMI, conjunctivae clear. NOSE: Normal no drainage EARS:TMS clear with good light reflex. THROAT: Pharynx clear, no exudate. NECK: Supple. No adenopathy, no masses. RESPIRATORY: Airway patent, respirations nonlabored. Clear to auscultation bilaterally, no rales, rhonchi, wheezing. CARDIOVASCULAR: Regular rate and rhythm without murmurs rubs or gallops. ABDOMINAL: Soft, nontender, nondistended, normal bowel sounds MUSCULOSKELETAL: Right elbow tenderness to palpation with no ecchymosis or contusion. NEURO: Alert. Cranial nerves II through XII intact. Good gait. Good coordination SKIN: Warm, dry. Normal Color Course Course Emergency Course: 57-year-old female presenting ED for evaluation after having a ground level fall on the ice. Head CT was negative for acute intracranial abnormality and x-ray of the right elbow showed no acute fracture dislocation. Patient was able to ambulat
[2023-03-01] MEDS: HYDROcodone/acetaminophen (*CRX) 5-325 MG TABLET 1 TAB PO (10:19)
[2023-03-01 10:41] VITALS: BP 148/79; PULSE 78; RESP 18; TEMP 36.7; O2SAT 98
== END 2023-03-01 10:46 | disposition home or self-care (01) ==
PROVIDERS: Emergency Provider Emergency Medicine; PCP Family Medicine
DX: S50.01XA Contusion of right elbow, initial encounter (principal); S09.90XA Unspecified injury of head, initial encounter; I10 Essential (primary) hypertension; E11.9 Type 2 diabetes mellitus without complications; E78.5 Hyperlipidemia, unspecified; E66.01 Morbid (severe) obesity due to excess calories; Z68.43 Body mass index [BMI] 50.0-59.9, adult; M19.90 Unspecified osteoarthritis, unspecified site; Z90.710 Acquired absence of both cervix and uterus; Z79.84 Long term (current) use of oral hypoglycemic drugs; W00.0XXA Fall on same level due to ice and snow, initial encounter
CPT/HCPCS: 70450; 73080; 99284; A9270

== ENCOUNTER 2023-05-08 10:44 | Outpatient (CLI) | payer OTHER, SELFPAY ==
--- NOTE | ~2023-05-08 | XR_ITS ---
XR knee LT min 4V DATE: 05/08/2023 11:00 INDICATION: Lateral posterior left knee pain for 3 months TECHNIQUE: 4 views COMPARISON: None FINDINGS: There is mild to moderate suprapatellar knee joint effusion. There is severe periarticular spurring at the patellofemoral joint. There is prominent periarticular spurring at the medial and lateral compartments and severe medial and moderate lateral compartment arturo int space narrowing. No fracture or dislocation, periosteal reaction or bone destruction, radiopaque intra-articular loose body or chondrocalcinosis is noted. IMPRESSION: Severe tricompartment osteoarthritis, mild to moderate knee joint effusion Reviewed, dictated and finalized at [facility]. IMPRESSION: Severe tricompartment osteoarthritis, mild to moderate knee joint e ffusion
== END 2023-05-08 10:45 | disposition home or self-care (01) ==
LOC: ANHIMG 10:46
PROVIDERS: PCP Family Medicine; Visit Provider Physician Assistant
DX: M25.562 Pain in left knee (principal); M17.12 Unilateral primary osteoarthritis, left knee; M25.462 Effusion, left knee
CPT/HCPCS: 73564

== ENCOUNTER 2023-06-16 09:38 | Emergency (ER) | payer OTHER, SELFPAY ==
[2023-06-16 09:49] VITALS: BP 117/63; PULSE 72; RESP 16; TEMP 36.4; O2SAT 99
--- NOTE | 2023-06-16 09:49 | ED.HA ---
HPI - Headache General Chief Complaint: Headache Stated Complaint: HEADACHE Time Seen by Provider: 06/16/23 09:49 Source: patient and RN notes reviewed Mode of arrival: ambulatory Limitations: no limitations History of Present Illness HPI Narrative: 57 y/o female with hx obesity and DM presented for c/o migraine since 0100 today. Took Tylenol at the onset, then took Ubrelvy 0400 without significant improvement. Rates pain 9.9/10, located on the left side of head and behind eyes. Endorses photophobia and starting to feel nausea. Denies vision changes, dizziness, vomiting, diarrhea, nasal congestion or lethargy. Denies any rash to left scalp. Last migraine was about one year ago. Related Data Home Medications Medication Instructions Recorded Confirmed ubrogepant 100 mg tablet (Ubrelvy) 100 mg PO ONCE 07/21/22 06/16/23 Allergies Allergy/AdvReac Type Severity Reaction Status Date / Time adhesive tape Allergy Mild Rash Verified 06/16/23 09:45 milk Allergy Unknown Unknown Verified 06/16/23 09:45 levofloxacin AdvReac Unknown Tremor Verified 06/16/23 09:45 Review of Systems Review of Systems: CONSTITUTIONAL: Denies body aches, fever, chills, or sweats. EYES: Reports foot of Denies visual changes, redness, or discharge. ENT: Denies rhinorrhea, congestion, sore throat, or otalgia. CARDIOVASCULAR: Denies chest pain, palpitations, or edema. RESPIRATORY: Denies cough or dyspnea. GASTROINTESTINAL: Reports nausea Denies abdominal pain, vomiting, or diarrhea. SKIN: Denies rash, itching, or wounds. MUSCULOSKELETAL: Denies back pain, neck pain NEUROLOGIC: Endorses headache, denies numbness, tingling, weakness, dizziness All systems reviewed & are unremarkable except as noted in HPI and below PMFSH Past Medical History Medical History Anxiety Arthritis Body mass index (BMI) of 50-59.9 in adult (11/25/18) Diabetes Elevated hemoglobin Essential hypertension Ganglion cyst of volar aspect of right wrist Hyperlipidemia Left arm pain Morbid (severe) obesity due to excess calories Recurrent candidiasis of vagina Screen for colon cancer Uncontrolled type 2 diabetes mellitus with hyperglycemia Surgical History Surgical History H/O lumpectomy History of hysterectomy Hx of laparoscopic gastric banding Hx of toe surgery Previous section Status post panniculectomy Family History Family History Mother Family history of thyroid disease Diabetes mellitus Family history of malignant neoplasm of thyroid Stage 4 chronic kidney disease CHF (congestive heart failure) Anemia Cancer Hypertension Father Carcinoma of colon Cancer Sepsis UTI Sibling Skin cancer Cancer Grandparent Cancer Family history of thyroid disease Social History Social History Smoking status: Never smoker Second hand tobacco smoke exposure: No Alcohol intake: never Substance use: never Substance use type: does not use Do You Feel Safe in your Home?: Yes Lack of Transportation: No Lack of Food: Never True Current Housing: I Have Housing Concerned About Future Housing: No Difficulty Paying Gas/Electric Bills: YES Difficulty Paying for Meds: YES Currently Unemployed: No Education: Associate Degree Difficulty w/ Childcare or Family Care: No Living arrangements: with family Occupation/Education: occupation 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 Please see nursing chart for further information. There is no
[2023-06-16] MEDS: KETOROLAC (*BKC) 60 MG/2 ML VIAL IM (10:08)
== END 2023-06-16 10:55 | disposition short-term general hospital (02) ==
PROVIDERS: Emergency Provider Nurse Practitioner Family; PCP Family Medicine
DX: G43.909 Migraine, unspecified, not intractable, without status migrainosus (principal); M19.90 Unspecified osteoarthritis, unspecified site; E11.9 Type 2 diabetes mellitus without complications; I10 Essential (primary) hypertension; E78.5 Hyperlipidemia, unspecified; E66.01 Morbid (severe) obesity due to excess calories; Z68.43 Body mass index [BMI] 50.0-59.9, adult; Z98.84 Bariatric surgery status
CPT/HCPCS: 96372; 99213; G0463; J1885

== ENCOUNTER 2023-06-16 11:12 | Emergency (ER) | payer OTHER, SELFPAY ==
[2023-06-16 11:19] VITALS: BP 140/72; PULSE 73; RESP 16; TEMP 36.6; O2SAT 99
--- NOTE | 2023-06-16 11:44 | ED.HA ---
HPI - Headache General Chief Complaint: Headache Stated Complaint: migraine Time Seen by Provider: 06/16/23 11:37 History of Present Illness HPI Narrative: 57-year-old female morbidly obese history of diabetes presents to the emergency room for evaluation of headache that began at 2:00 a.m. this morning. Patient states this is her typical migraine headaches. Reports taking Tylenol and her usual dose of Ubrelvy at 4:00 a.m. with no improvement of symptoms. Patient states the pain is located behind her eyes. Denies any dizziness or lightheadedness. Associated with nausea without vomiting. Denies any visual or hearing changes. States her last migraine was over 6 months ago. Denies any head injury or trauma. Related Data Home Medications Medication Instructions Recorded Confirmed ubrogepant 100 mg tablet (Ubrelvy) 100 mg PO ONCE 07/21/22 06/16/23 Allergies Allergy/AdvReac Type Severity Reaction Status Date / Time adhesive tape Allergy Mild Rash Verified 06/16/23 09:45 milk Allergy Unknown Unknown Verified 06/16/23 09:45 levofloxacin AdvReac Unknown Tremor Verified 06/16/23 09:45 Review of Systems Review of Systems: Rue systems unremarkable except for noted in HPI PMFSH Past Medical History Medical History Anxiety Arthritis Body mass index (BMI) of 50-59.9 in adult (11/25/18) Diabetes Elevated hemoglobin Essential hypertension Ganglion cyst of volar aspect of right wrist Hyperlipidemia Left arm pain Morbid (severe) obesity due to excess calories Recurrent candidiasis of vagina Screen for colon cancer Uncontrolled type 2 diabetes mellitus with hyperglycemia Surgical History Surgical History H/O lumpectomy History of hysterectomy Hx of laparoscopic gastric banding Hx of toe surgery Previous section Status post panniculectomy Family History Family History Mother Family history of thyroid disease Diabetes mellitus Family history of malignant neoplasm of thyroid Stage 4 chronic kidney disease CHF (congestive heart failure) Anemia Cancer Hypertension Father Carcinoma of colon Cancer Sepsis UTI Sibling Skin cancer Cancer Grandparent Cancer Family history of thyroid disease Social History Social History Smoking status: Never smoker Second hand tobacco smoke exposure: No Alcohol intake: never Substance use: never Substance use type: does not use Do You Feel Safe in your Home?: Yes Lack of Transportation: No Lack of Food: Never True Current Housing: I Have Housing Concerned About Future Housing: No Difficulty Paying Gas/Electric Bills: YES Difficulty Paying for Meds: YES Currently Unemployed: No Education: Associate Degree Difficulty w/ Childcare or Family Care: No Living arrangements: with family Occupation/Education: occupation 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 EYES: Conjunctivae normal, PERRLA and EOMI. ENT: External nose normal, Nares clear, no rhinorrhea or epistaxis. Mucous membranes moist. Oropharynx without tonsillar hypertrophy exudate or other lesions. External ears normal, bilateral TMs normal bilaterally NECK: Supple. No meningeal signs. CHEST: Clear to auscultation. No respiratory distress. No wheezes rales or rhonchi. HEART: Regular rate and rhythm. No murmur heard. Normal peripheral pulses. EXTREMITIES: Normal range of motion. No edema. No clubbing or cyanosis SKIN: Warm, dry, no rash. No noted wounds NEURO: No focal deficits. Alert and orien
[2023-06-16] MEDS: METOCLOPRAMIDE HCL INJ 10 MG/2 ML VIAL IV PUSH (12:02)
[2023-06-16] MEDS: SODIUM CHLORIDE 0.9% IV 1,000 ML 999 ML IV CONT (12:02)
[2023-06-16] MEDS: dexAMETHasone SOD PHOS INJ 10 MG/ML 1 ML VIAL IV PUSH (12:02)
[2023-06-16] MEDS: diphenhydrAMINE HCl INJ 50 MG/ML VIAL IV PUSH (12:02)
[2023-06-16 14:22] VITALS: BP 152/78; PULSE 79; RESP 16; TEMP 36.5; O2SAT 99
== END 2023-06-16 14:23 | disposition home or self-care (01) ==
PROVIDERS: Emergency Provider Nurse Practitioner Family; PCP Family Medicine
DX: R51.9 Headache, unspecified (principal); I10 Essential (primary) hypertension; E11.9 Type 2 diabetes mellitus without complications; E78.5 Hyperlipidemia, unspecified; E66.01 Morbid (severe) obesity due to excess calories; Z68.43 Body mass index [BMI] 50.0-59.9, adult; M19.90 Unspecified osteoarthritis, unspecified site; Z90.710 Acquired absence of both cervix and uterus; Z79.84 Long term (current) use of oral hypoglycemic drugs; Z79.85 Long-term (current) use of injectable non-insulin antidiabetic drugs
CPT/HCPCS: 96361; 96372; 96374; 96375; 99284; J1100; J1200; J1885; J2765; J7030

== ENCOUNTER 2023-12-02 10:11 | Emergency (ER) | payer OTHER, SELFPAY ==
--- NOTE | ~2023-12-02 | CT_ITS ---
EXAMINATION: CT abdomen pelvis w con DATE: 12/02/2023 12:01 INDICATION: Left lower quadrant abdominal tenderness. Nausea, vomiting, and diarrhea. TECHNIQUE: Computed tomography (CT) of the abdomen and pelvis was performed with 100 mL Omnipaque 350 intravenous contrast. Automated exposure control and iterative reconstruction technique were employe d. The dose-length product was 1545.99 mGy-cm. COMPARISON: CT abdomen and pelvis 12/22/2022 FINDINGS: The visualized portions of the lung bases demonstrates calcified pulmonary nodules and calc ified right hilar lymph nodes, consistent with old granulomatous disease. There are noncalcified nodu les in the lungs measuring up to 5 mm, likely benign. No pleural effusion. The heart size is normal. No pericardial effusion. A lap band is noted. There is diffuse hepatic steatosis. The gallbladder is normal. Calcifications in the spleen are consistent with old granulomatous disease. The pancreas and adrenal glands are normal. There is cortical thinning of the kidneys. There are no dilated loops of b owel. The appendix is not visualized. There are no pathologically enlarged lymph nodes. There is no f ree intraperitoneal fluid. There are supraumbilical and infraumbilical ventral hernias containing fat . There is severe lumbar spondylosis. There are bridging endplate osteophytes at multiple levels in t he thoracic spine, consistent with diffuse idiopathic skeletal hyperostosis (DISH). IMPRESSION: 1. Ventral hernias containing fat. 2. Diffuse hepatic steatosis. Reviewed, dictated and finalized at location A.
[2023-12-02 10:18] VITALS: BP 138/70; PULSE 84; RESP 16; TEMP 36.8; O2SAT 100
[2023-12-02 10:45] LABS: Basophils Absolute Auto 0.1 K/mm3 (0.0-0.1); Basophils Percent Auto 0.9 % (0.2-1.2); Eosinophils Absolute Auto 0.3 K/mm3 (0-0.3); Eosinophils Percent Auto 2.8 % (0-4.4); Hematocrit 41.9 % (37.0-47.0); Hemoglobin 14.3 g/dL (12.0-15.0); Immature Granulocyte Absolute 0.05 K/mm3 (0.00-0.031); Immature Granulocyte Percent A 0.5 % (0-0.5); Lymphocytes Percent Auto 27.4 % (18.3-44.2); Mean Corpuscular HGB Conc 34.1 g/dl (32-36); Mean Corpuscular Hemoglobin 30.4 pg (26-34); Mean Corpuscular Volume 89.1 fl (80-100); Mean Platelet Volume 9.1 fl (7.4-10.4); Monocytes Absolute Auto 0.5 K/mm3 (0.1-0.6); Monocytes Percent Auto 5.1 % (2.6-8.5); Neutrophils Absolute Auto 5.8 K/mm3 (1.3-6.7); Neutrophils Percent Auto 63.3 % (45.5-73.1); Platelet Count Result 342 k/mm3 (150-375); Red Cell Distribution Width 13.2 % (11.5-14.5); White Blood Count 9.1 K/mm3 (4.5-10.0)
[2023-12-02 10:55] LABS: Alanine Aminotransferase 30 U/L (6-35); Albumin Level 4.3 g/dL (3.5-5.1); Alkaline Phosphatase 89 U/L (38-126); Anion Gap 10 mmol/L (4-12); Aspartate Amino Transferase 36 U/L (14-36); Bilirubin,Total 0.6 mg/dL (0.2-1.3); Blood Urea Nitrogen 16 mg/dL (7-17); Calcium 9.5 mg/dL (8.4-10.2); Carbon Dioxide 22 mmol/L (22-30); Chloride 104 mmol/L (98-107); Estimated CRCL calculation 108 ml/min; Estimated Glomerular Filt Rate > 60; Glucose 181 mg/dL (65-110); Lipase 127 U/L (23-300); Potassium 4.3 mmol/L (3.4-5.0); Sodium 136 mmol/L (137-145)
[2023-12-02 11:06] LABS: Add Urine Microscopic? YES; Appearance Urine Cloudy (Clear); Bacteria Urine Rare /hpf; Bilirubin Urine Negative (Negative); Blood Urine Negative (Negative); Color Urine Yellow (Yellow); Glucose Urine UA Negative (Negative); Ketones Urine Trace mg/dL (Negative); Leukocyte Esterase Ur Negative LEU/UL (Negative); Nitrate Urine Negative (Negative); Non Pathogenic Casts 0-2; Protein Urine Negative (Negative); RBC Urine 0-2 /hpf (0-2); Specific Grav Ur 1.023 (1.001-1.035); Squamous Epithelial Cell Urine Few /hpf (Few); Urobilinogen Urine 0.2 mg/dL (<2.0); WBC Urine 0-5 /hpf (0-3)
--- NOTE | 2023-12-02 11:37 | ED_ITS ---
HPI - Abdominal Pain General Chief Complaint: Abdominal Pain Stated Complaint: 4 days LLQ pain N/V/D Time Seen by Provider: 12/02/23 10:20 Source: patient Mode of arrival: ambulatory Limitations: no limitations History of Present Illness HPI narrative: This is a 58-year-old female who presents to the ED for chief complaint of left lower quadrant abdominal pain over the past few days. Reports associated N/V/D with 1 episode of vomiting. Denies any GI bleeding symptoms. Denies associated fevers, chills, back pain, urinary symptoms. Reports history of lap band 2011 but has not had any issues with this lately. Related Data Home Medications Medication Instructions Recorded Confirmed ubrogepant 100 mg tablet (Ubrelvy) 100 mg PO ONCE 07/21/22 11/22/23 acetaminophen 650 mg 650 mg PO Q12H 11/22/23 11/22/23 tablet,extended release Allergies Allergy/AdvReac Type Severity Reaction Status Date / Time adhesive tape Allergy Mild Rash Verified 12/02/23 10:12 milk Allergy Unknown Unknown Verified 12/02/23 10:12 mushroom AdvReac Severe Vomiting Verified 12/02/23 10:12 levofloxacin AdvReac Unknown Tremor Verified 12/02/23 10:12 Review of Systems Review of Systems: All systems as dictated in HPI REPLACED BY [facility] Past Medical History Medical History Anxiety Arthritis Body mass index (BMI) of 50-59.9 in adult (11/25/18) Diabetes Elevated hemoglobin Essential hypertension Ganglion cyst of volar aspect of right wrist Hyperlipidemia Left arm pain Morbid (severe) obesity due to excess calories Recurrent candidiasis of vagina Screen for colon cancer Uncontrolled type 2 diabetes mellitus with hyperglycemia Surgical History Surgical History H/O lumpectomy History of hysterectomy Hx of laparoscopic gastric banding Hx of toe surgery Previous section Status post panniculectomy Family History Family History Mother Family history of thyroid disease Diabetes mellitus Family history of malignant neoplasm of thyroid Stage 4 chronic kidney disease CHF (congestive heart failure) Anemia Cancer Hypertension Father Carcinoma of colon Cancer Sepsis UTI Sibling Skin cancer Cancer Grandparent Cancer Family history of thyroid disease Social History Social History Smoking status: Never smoker Second hand tobacco smoke exposure: No Alcohol intake: never Substance use: never Substance use type: does not use Do You Feel Safe in your Home?: Yes Lack of Transportation: No Lack of Food: Never True Current Housing: I Have Housing Concerned About Future Housing: No Difficulty Paying Gas/Electric Bills: YES Difficulty Paying for Meds: YES Currently Unemployed: No Education: Associate Degree Difficulty w/ Childcare or Family Care: No Living arrangements: with family Occupation/Education: occupation 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 Gender identity (if verbalized by the patient): Female Exam Narrative: GENERAL: Well-appearing, well-nourished, and in no acute distress. HEAD: Normocephalic, atraumatic. EYES: PERRLA and EOMI. ENT: Nares clear, no rhinorrhea or epistaxis. Mucous membranes moist. Oropharynx without tonsillar hypertrophy exudate or other lesions. NECK: Supple. No adenopathy or masses. CHEST: No respiratory distress. Clear to auscultation. No wheezes rales or rhonchi HEART: Regular rate and rhythm. No murmur heard. Normal peripheral pulses. ABDOMEN: Soft, nontender, nondistended, normal active bowel sounds. MSK: Normal range of motion. No edema. SKIN: Warm, dry, no rash. NEURO: Alert and oriented x4. No focal deficits. PSYCH: Normal mood and affect. Course Vital Signs Vital signs: Vital Signs Temperature 98.2 F 12/02/23 10:18 Pulse Rate 84 12/02/23 10:18 Respiratory Rate 16 12/02/23 10:18 Blood Pressure 138/70 12/02/23 10:18 Pulse Oximetry 100 12/02/23 10:18 Temperature 98.2 F 12/02/23 10:18 Pulse Rate 71 12/02/23 12:50 Respiratory Rate 17 12/02/23 12:50 Blood Pressure 105/58 L 12/02/23 12:50 Pulse Oximetry 98 12/02/23 12:50 MDM - Abdominal Pain MDM Narrative Medical decision making narrative: This is a 58 yo female who presents to the ED for left lower quadrant abdominal pain. Vitals are normal. Exam shows mild left lower quadrant tenderness but no flank tenderness. Lab work is unremarkable grossly. Urinalysis unremarkable as well. CT abdomen and pelvis with contrast: IMPRESSION: 1. Ventral hernias containing fat. 2. Diffuse hepatic steatosis. Imaging and workup today are reassuring. Patient is asymptomatic on re- evaluation. Presentation most likely consistent with gastroenteritis with associated diarrhea. Zofran prescribed. Do not feel that the ventral hernias or hepatic steatosis are contributing to acute pain right now. Patient will be discharged in stable condition. Supportive measures discussed and return precautions given. Patient is understanding and agreeable with plan for discharge with PCP follow-up. Differential Diagnosis Differential diagnosis: Likely abdominal pain, acute appendicitis, calculus of kidney, constipation, diverticulitis, gastroenteritis, pancreatitis and small bowel obstruction Lab Data 12/02/23 10:38 12/02/23 10:38 Labs: Lab Results 12/02/23 12/02/23 Range/Units 10:32 10:38 WBC 9.1 (4.5-10.0) K/mm3 RBC 4.70 (4.2-5.4) M/mm3 Hgb 14.3 (12.0-15.0) g/dL Hct 41.9 (37.0-47.0) % MCV 89.1 (80-100) fl MCH 30.4 (26-34) pg MCHC 34.1 (32-36) g/dl RDW 13.2 (11.5-14.5) % Plt Count 342 (150-375) k/mm3 MPV 9.1 (7.4-10.4) fl Immature Gran % (Auto) 0.5 (0-0.5) % Neut % (Auto) 63.3 (45.5-73.1) % Lymph % (Auto) 27.4 (18.3-44.2) % [place] % (Auto) 5.1 (2.6-8.5) % Eos % (Auto) 2.8 (0-4.4) % Baso % (Auto) 0.9 (0.2-1.2) % Lymph # (Auto) 2.50 (0.9-3.2) K/mm3 [place] # (Auto) 0.5 (0.1-0.6) K/mm3 Eos # (Auto) 0.3 (0-0.3) K/mm3 Baso # (Auto) 0.1 (0.0-0.1) K/mm3 Abs Immat Gran (auto) 0.05 H (0.00-0.031) K/mm3 Absolute Neuts (auto) 5.8 (1.3-6.7) K/mm3 Absolute Nucleated RBC 0.000 (0.0-0.012) K/mm3 Nucleated RBC % 0.0 (0.0-0.2) % Sodium 136 L (137-145) mmol/L Potassium 4.3 (3.4-5.0) mmol/L Chloride 104 (98-107) mmol/L Carbon Dioxide 22 (22-30) mmol/L Anion Gap 10 (4-12) mmol/L BUN 16 (7-17) mg/dL Creatinine 0.80 (0.7-1.0) mg/dL Estim Creat Clear Calc 108 ml/min Estimated GFR > 60 (59 - ) Glucose 181 H (65-110) mg/dL Calcium 9.5 (8.4-10.2) mg/dL Total Bilirubin 0.6 (0.2-1.3) mg/dL AST 36 (14-36) U/L ALT 30 (6-35) U/L Alkaline Phosphatase 89 (38-126) U/L Total Protein 8.0 (6.3-8.2) g/dL Albumin 4.3 (3.5-5.1) g/dL Lipase 127 (23-300) U/L Urine Color Yellow (Yellow) Urine Appearance Cloudy H (Clear) Urine pH 5.0 (5.0-9.0) Ur Specific [place] 1.023 (1.001-1.035) Urine Protein Negative (Negative) mg/dL Urine Glucose (UA) Negative (Negative) mg/dL Urine Ketones Trace H (Negative) mg/dL Ur Blood (Man) Negative (Negative) Urine Nitrate Negative (Negative) Urine Bilirubin Negative (Negative) Urine Urobilinogen 0.2 (<2.0) mg/dL Leukocyte Esterase Rfl Negative (Negative) LACI/UL Urine RBC 0-2 (0-2) /hpf Urine WBC 0-5 (0-3) /hpf Ur Squamous Epith Cells Few (Few) /hpf Urine Bacteria Rare /hpf Urine Casts 0-2 Imaging Data Radiologist's impression: ITS Impressions Abdomen/Pelvis CT 12/02/23 12:03 IMPRESSION: 1. Ventral hernias containing fat. 2. Diffuse hepatic steatosis. Discharge Plan Discharge Clinical Impression: Abdominal pain, Fatty liver, Hernia, ventral Patient Disposition: Home, Self-Care Condition: Stable Instructions: Antibiotic Form Additional Instructions: Exam and imaging today are reassuring. Please stay hydrated, use Tylenol for pain and Zofran for nausea. Symptoms should resolve on their own over the next week. Follow-up with PCP If you have any new or worsening symptoms please return to the ER for further evaluation. Prescriptions: New ondansetron 4 mg tablet,disintegrating 4 mg PO Q8H PRN (Reason: nausea and vomiting) Qty: 10 0RF No Action Ubrelvy 100 mg tablet 100 mg PO ONCE Rx Instructions: as a single dose; may repeat once in >=2 hours after first dose if needed acetaminophen 650 mg tablet extended release 650 mg PO Q12H fluconazole 150 mg tablet 150 mg PO Q72H Qty: 3 2RF Rx Instructions: For 3 doses metformin 500 mg tablet extended release 24 hr 2,000 mg PO DAILY Qty: 180 3RF (DME) blood sugar diagnostic Strip See Rx Instructions .Route Qty: 100 1RF Rx Instructions: As directed for blood glucose monitoring AC & HS simvastatin 20 mg tablet See Rx Instructions .ROUTE .COMPLEX Qty: 90 3RF Dose Instruction: TAKE 1 TABLET BY MOUTH EVERY DAY IN THE EVENING Rx Instructions: TAKE 1 TABLET BY MOUTH EVERY DAY IN THE EVENING meloxicam 15 mg tablet 15 mg PO DAILY Qty: 90 3RF semaglutide 2 mg/dose (8 mg/3 mL) pen injector 2 mg subcut WEEKLY Qty: 3 2RF lisinopril 10 mg tablet See Rx Instructions .ROUTE .COMPLEX Qty: 90 0RF Dose Instruction: TAKE 1 TABLET BY MOUTH DAILY Rx Instructions: TAKE 1 TABLET BY MOUTH DAILY Januvia 100 mg tablet 100 mg PO DAILY Qty: 90 3RF Follow-up/Referrals: Charles Sadler MD [Primary Care Provider] - Stand Alone Forms: Work/School Release IP Time of Disposition: 12:26
[2023-12-02] MEDS: ONDANSETRON INJ 4 MG/2 ML VIAL IV PUSH (11:42)
[2023-12-02] MEDS: MORPHINE SULFATE (*CRX) 4 MG/ML INJ IV PUSH (11:42)
[2023-12-02 12:50] VITALS: BP 105/58; PULSE 71; RESP 17; O2SAT 98
== END 2023-12-02 12:54 | disposition home or self-care (01) ==
PROVIDERS: Emergency Provider Physician Assistant; PCP Family Medicine
DX: R10.32 Left lower quadrant pain (principal); K76.0 Fatty (change of) liver, not elsewhere classified; K43.9 Ventral hernia without obstruction or gangrene; E11.9 Type 2 diabetes mellitus without complications; E78.5 Hyperlipidemia, unspecified; E66.01 Morbid (severe) obesity due to excess calories; Z68.43 Body mass index [BMI] 50.0-59.9, adult
CPT/HCPCS: 36415; 74177; 80053; 81001; 83690; 85025; 96374; 96375; 99284; J2270; J2405; Q9967

== ENCOUNTER 2024-02-08 12:12 | Emergency (ER) | payer OTHER, SELFPAY ==
[2024-02-08 12:38] VITALS: BP 109/64; PULSE 89; RESP 16; TEMP 35.8; O2SAT 99
--- NOTE | 2024-02-08 13:21 | ED.URI ---
HPI - URI/Sore Throat General Chief Complaint: Upper Respiratory Infection Stated Complaint: Headache, scratchy throat, nausea Time Seen by Provider: 02/08/24 13:15 Source: patient, RN notes reviewed and old records reviewed Mode of arrival: ambulatory Limitations: no limitations History of Present Illness HPI Narrative: 58 year old female who present to [facility] care with complaints of scratchy throat, nasal congestion and pressure with headache starting this morning. Patient reports that her daughter tested positive for influenza and she is concerned she may also have it, Patient reports her work told her to go get tested.Patient reports that she feels lousy and feel a little dizzy, some nausea and tired. Patient reports that she has taken some DayQuil for her symptoms. MD elicited complaint: sore throat, rhinorrhea, nasal congestion and other (Headache and nausea) Onset (ago): day(s) (this morning) Pain scale (0-10): 7 Able to tolerate fluids by mouth: Yes Treatments prior to arrival: other (DayQuil) Related Data Home Medications ?Medication ?Instructions ?Recorded ?Confirmed ?Last Taken ?Type ubrogepant 100 mg tablet (Ubrelvy) 100 mg PO ONCE 07/21/22 02/08/24 Unknown History acetaminophen 650 mg 650 mg PO Q12H 11/22/23 02/08/24 Unknown History tablet,extended release Allergies Allergy/AdvReac Type Severity Reaction Status Date / Time adhesive tape Allergy Mild Rash Verified 02/08/24 12:27 milk Allergy Unknown Unknown Verified 02/08/24 12:27 mushroom AdvReac Severe Vomiting Verified 02/08/24 12:27 levofloxacin AdvReac Unknown Tremor Verified 02/08/24 12:27 Review of Systems Review of Systems: CONSTITUTIONAL: Reports malaise, no chills, sweats, or fever. reports is tired and feel a a little dizzy EYES: Denies visual changes, redness, or discharge. ENT: Reports rhinorrhea, congestion, sinus pain,no otalgia and scratchy sore throat. CARDIOVASCULAR: Denies chest pain, palpitations, or edema. RESPIRATORY: Reports cough.? Denies dyspnea. GASTROINTESTINAL: Denies abdominal pain, positive for nausea, no vomiting, no diarrhea SKIN: Denies rash or itching. MUSCULOSKELETAL: Denies myalgia. NEUROLOGIC: Reports headache. All systems reviewed & are unremarkable except as noted in HPI and below PMFSH Past Medical History Medical History Left arm pain Screen for colon cancer Ganglion cyst of volar aspect of right wrist Diabetes Arthritis Morbid (severe) obesity due to excess calories Anxiety Body mass index (BMI) of 50-59.9 in adult (11/25/18) Elevated hemoglobin Essential hypertension Hyperlipidemia Recurrent candidiasis of vagina Uncontrolled type 2 diabetes mellitus with hyperglycemia Surgical History Surgical History H/O lumpectomy Hx of toe surgery History of hysterectomy Previous section Hx of laparoscopic gastric banding Status post panniculectomy Family History Family History Mother Family history of thyroid disease Diabetes mellitus Family history of malignant neoplasm of thyroid Stage 4 chronic kidney disease CHF (congestive heart failure) Anemia Cancer Hypertension Father Carcinoma of colon Cancer Sepsis UTI Sibling Skin cancer Cancer Grandparent Cancer Family history of thyroid disease Social History Social History Smoking status: Never smoker Second hand tobacco smoke exposure: No Alcohol intake: never Substance use: never Substance use type: does not use Do You Feel Safe in your Home?: Yes Lack of Transportation: No Lack of Food: Never True Current Housing: I Have Housing Concerned About Future Housing: No Difficulty Paying Gas/Electric Bills: YES Difficulty Paying for Meds: YES Currently Unemployed: No Education: Associate Degree Difficulty w/ Childcare or Family Care: No Living arrangements: with family Occupation/Education: occupation 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 There is no relevant family history pertinent to the presenting complaint Exam Narrative: GENERAL: Well-appearing, well-nourished, obese and in no acute distress. HEAD: Normocephalic EYES: PERRLA, conjunctivae clear ENT: Nares clear, turbinates edematous and erythematous, clear discharge sinus pressure and headache pain.. Mucous membranes moist. TM pearly camp with dull light reflex bilaterally; no tragal tenderness. Oropharynx erythematous without lesions. Tonsils not enlarged and without exudate, no drooling, no hoarseness, no trismus, uvula midline. NECK: Supple. No lymphadenopathy CHEST: Clear to auscultation, breath sounds equal. No wheezing, rhonchi, rales, or stridor. No respiratory distress, speaks in full sentences.SAO2 99% on room air HEART: Regular rate and rhythm. No murmur heard. SKIN: Warm, dry, no rash. NEURO: Alert and oriented x3. PSYCH: Normal mood and affect Course Course Emergency Course: Patient is aware of diagnosis, understands and agrees to treatment plan.? Anticipatory guidance given.? Patient agrees to follow-up as directed and is aware of reasons to seek care at the emergency department. Portions of this record may have been created with voice recognition software Level of Care: Express Care Visit Vital Signs Vital signs: Vital Signs Temperature 35.8 C L 02/08/24 12:38 Pulse Rate 89 02/08/24 12:38 Respiratory Rate 16 02/08/24 12:38 Blood Pressure 109/64 02/08/24 12:38 Pulse Oximetry 99 02/08/24 12:38 Temperature 35.8 C L 02/08/24 12:38 Pulse Rate 89 02/08/24 12:38 Respiratory Rate 16 02/08/24 12:38 Blood Pressure 109/64 02/08/24 12:38 Pulse Oximetry 99 02/08/24 12:38 Reviewed MDM - URI/Sore Throat MDM Narrative Medical decision making narrative: Differential diagnosis considered: Valerio virus, strep pharyngitis, allergic rhinitis, upper respiratory tract infection, sinusitis, rhinosinusitis, nasopharyngitis. viral pharyngitis, otitis media, otitis externa, pneumonia, bronchitis, viral cough syndrome, viral syndrome, and influenza.? Exam findings show no acute concerns or changes; patient is non-toxic appearing and is in no distress.? Patient is appropriate for outpatient treatment and follow-up. Differential Diagnosis Differential diagnosis: Likely upper respiratory infection, sinusitis, viral infection, influenza and other (COVID) Medical Records Attestation: I reviewed the patient's medical records. Lab Data Attestation: I reviewed the patient's lab results. Lab results narrative: Influenza A negative, Influenza B negative, Covid antigen negative Labs: Lab Results 02/08/24 Range/Units 12:31 POC Influenza A Ag Negative (Negative) POC Influenza B Ag Negative (Negative) POC SARS CoV-2 Ag Negative (Negative) Critical Care Time Critical Care Time Critical Care Time: No Discharge Plan Discharge Clinical Impression: Flu-like symptoms Patient Disposition: Home, Self-Care Condition: Stable Instructions: Influenza (ED), Acute Headache (ED), Acute Nausea and Vomiting (DC) Additional Instructions: Increase fluids especially juices and water [id number] cough and cold medicine of your choice for your symptoms Tylenol or ibuprofen for any fever pain Zofran for nausea heat to the face 20-30 minutes 4-6 times a day for pain Salt water gargles, throat lozenges or throat sprays as desired If your symptoms persist, change or worsen significantly before you can contact your personal physician then please, without delay, go to the emergency department for further evaluation. Follow-up with PCP in 7-10 days or sooner if needed recommend retesting for COVID and flu tomorrow Patient Language: Hungarian Prescriptions: New ondansetron 4 mg tablet,disintegrating 4 mg PO Q6H PRN (Reason: nausea and vomiting) Qty: 14 0RF No Action Ubrelvy 100 mg tablet 100 mg PO ONCE Rx Instructions: as a single dose; may repeat once in >=2 hours after first dose if needed acetaminophen 650 mg tablet extended release 650 mg PO Q12H metformin 500 mg tablet extended release 24 hr 2,000 mg PO DAILY Qty: 180 3RF (DME) blood sugar diagnostic Strip See Rx Instructions .Route Qty: 100 1RF Rx Instructions: As directed for blood glucose monitoring AC & HS simvastatin 20 mg tablet See Rx Instructions .ROUTE .COMPLEX Qty: 90 3RF Dose Instruction: TAKE 1 TABLET BY MOUTH EVERY DAY IN THE EVENING Rx Instructions: TAKE 1 TABLET BY MOUTH EVERY DAY IN THE EVENING meloxicam 15 mg tablet 15 mg PO DAILY Qty: 90 3RF semaglutide 2 mg/dose (8 mg/3 mL) pen injector 2 mg subcut WEEKLY Qty: 3 2RF Januvia 100 mg tablet 100 mg PO DAILY Qty: 90 3RF lisinopril 10 mg tablet See Rx Instructions .ROUTE .COMPLEX Qty: 90 0RF Dose Instruction: TAKE 1 TABLET BY MOUTH DAILY Rx Instructions: TAKE 1 TABLET BY MOUTH DAILY Follow-up/Referrals: Charles Sadler MD [Primary Care Provider] - Time of Disposition: 13:33 Quality [place] Coma Scale Eyes: Open Verbal: Oriented and Alert Motor: Follows Commands [place] Coma Total Score: 15
[2024-02-08 13:42] LABS: EDCOVIDSCREEN Negative (Negative); EDINFLUASCREEN Negative (Negative); EDINFLUBSCREEN Negative (Negative)
== END 2024-02-08 13:35 | disposition home or self-care (01) ==
PROVIDERS: Emergency Provider Registered Nurse; PCP Family Medicine
DX: J11.1 Influenza due to unidentified influenza virus with other respiratory manifestations (principal); Z20.822 Contact with and (suspected) exposure to COVID-19; E11.9 Type 2 diabetes mellitus without complications; I10 Essential (primary) hypertension; E78.5 Hyperlipidemia, unspecified; M19.90 Unspecified osteoarthritis, unspecified site; E66.01 Morbid (severe) obesity due to excess calories; Z68.43 Body mass index [BMI] 50.0-59.9, adult
CPT/HCPCS: 87426; 87804; 99213; G0463

== ENCOUNTER 2024-03-07 17:17 | Emergency (ER) | payer OTHER, SELFPAY ==
[2024-03-07 18:20] VITALS: BP 132/70; PULSE 97; RESP 16; TEMP 36.5; O2SAT 100
[2024-03-07 18:34] LABS: EDUAAPPEAR Clear; EDUABILI Negative (Negative); EDUABLOOD 2+ (Negative); EDUACOLOR1 Yellow; EDUAGLUCOSE 2+ (Negative); EDUAKETONE Negative (Negative); EDUALEUKO 1+ (Negative); EDUANITRATE Negative (Negative); EDUAPH 5.5; EDUAPROTEIN Trace (Negative); EDUAUROBILI 0.2
--- NOTE | 2024-03-07 18:40 | ED.FEMALEGU ---
HPI - Female Genitourinary General Chief complaint: Urogenital-Female Stated complaint: Uti Symptoms Time Seen by Provider: 03/07/24 18:40 Source: patient and RN notes reviewed Mode of arrival: ambulatory Limitations: no limitations History of Present Illness HPI Narrative: 58-year-old female presents with concern for dysuria, frequency, urgency, suprapubic pressure for 3-4 days. She denies nausea, vomiting, back pain, fever, chills, sweats. MD elicited complaint: UTI Related Data Allergies Allergy/AdvReac Type Severity Reaction Status Date / Time adhesive tape Allergy Mild Rash Verified 03/07/24 18:42 milk Allergy Unknown Unknown Verified 03/07/24 18:42 mushroom AdvReac Severe Vomiting Verified 03/07/24 18:42 levofloxacin AdvReac Unknown Tremor Verified 03/07/24 18:42 Review of Systems Review of Systems: CONSTITUTIONAL: Denies malaise, chills, sweats, or fever. CARDIOVASCULAR: Denies chest pain, palpitations, or edema. RESPIRATORY: Denies cough or dyspnea. GASTROINTESTINAL: Denies abdominal pain, nausea, vomiting, diarrhea GENITOURINARY: Reports dysuria, frequency, urgency, suprapubic pressure. Denies flank pain or hematuria. SKIN: Denies rash or itching. MUSCULOSKELETAL: Denies back pain or myalgia. All systems reviewed & are unremarkable except as noted in HPI and below PMFSH Past Medical History Medical History Left arm pain Screen for colon cancer Ganglion cyst of volar aspect of right wrist Diabetes Arthritis Morbid (severe) obesity due to excess calories Anxiety Body mass index (BMI) of 50-59.9 in adult (11/25/18) Elevated hemoglobin Essential hypertension Hyperlipidemia Recurrent candidiasis of vagina Uncontrolled type 2 diabetes mellitus with hyperglycemia Surgical History Surgical History H/O lumpectomy Hx of toe surgery History of hysterectomy Previous section Hx of laparoscopic gastric banding Status post panniculectomy Family History Family History Mother Family history of thyroid disease Diabetes mellitus Family history of malignant neoplasm of thyroid Stage 4 chronic kidney disease CHF (congestive heart failure) Anemia Cancer Hypertension Father Carcinoma of colon Cancer Sepsis UTI Sibling Skin cancer Cancer Grandparent Cancer Family history of thyroid disease Social History Social History Smoking status: Never smoker Second hand tobacco smoke exposure: No Alcohol intake: never Substance use: never Substance use type: does not use Do You Feel Safe in your Home?: Yes Lack of Transportation: No Lack of Food: Never True Current Housing: I Have Housing Concerned About Future Housing: No Difficulty Paying Gas/Electric Bills: YES Difficulty Paying for Meds: YES Currently Unemployed: No Education: Associate Degree Difficulty w/ Childcare or Family Care: No Living arrangements: with family Occupation/Education: occupation 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 There is no relevant family history pertinent to the presenting complaint Exam Narrative: GENERAL: Well-appearing, well-nourished, and in no acute distress. HEAD: Normocephalic. EYES: PERRLA, conjunctivae clear. NECK: Supple. No lymphadenopathy CHEST: Clear to auscultation. No respiratory distress. HEART: Regular rate and rhythm. SKIN: Warm, dry, no rash. NEURO: Alert and oriented x3. PSYCH: Normal mood and affect Course Course Emergency Course: Patient is aware of diagnosis, understands and agrees to treatment plan. Anticipatory guidance given. Patient agrees to follow-up as directed and is aware of reasons to seek care at the emergency department. Portions of this record may have been created with voice recognition software Level of Care: Express Care Visit Vital Signs Vital signs: Vital Signs Temperature 97.7 F 03/07/24 18:20 Pulse Rate 97 03/07/24 18:20 Respiratory Rate 16 03/07/24 18:20 Blood Pressure 132/70 03/07/24 18:20 Pulse Oximetry 100 03/07/24 18:20 Temperature 97.7 F 03/07/24 18:20 Pulse Rate 97 03/07/24 18:20 Respiratory Rate 16 03/07/24 18:20 Blood Pressure 132/70 03/07/24 18:20 Pulse Oximetry 100 03/07/24 18:20 Reviewed. MDM - Female Genitourinary MDM Narrative Medical decision making narrative: Exam findings and UA show no acute concerns or changes; patient is non-toxic appearing and is in no distress. Patient is appropriate for outpatient treatment and follow-up. Differential Diagnosis Differential diagnosis: Likely urinary tract infection and cystitis Lab Data Labs: Lab Results 03/07/24 Range/Units 18:33 POC Urine Color Yellow POC Urine Clarity Clear POC Urine pH 5.5 POC Ur Specif [place] 1.030 POC Urine Protein Trace (Negative) POC Ur Glucose (UA) 2+ (Negative) POC Urine Ketones Negative (Negative) POC Urine Blood 2+ (Negative) POC Urine Nitrite Negative (Negative) POC Urine Bilirubin Negative (Negative) POC Urine Urobilinogen 0.2 POC U Leukocyte Esteras 1+ (Negative) Critical Care Time Critical Care Time Critical Care Time: No Discharge Plan Discharge Clinical Impression: Urinary tract infection Patient Disposition: Home, Self-Care Condition: Stable Instructions: Antibiotic Form, Urinary Tract Infection in Women (ED) Additional Instructions: We will send a urine culture to the lab; if the culture identifies an organism that the prescribed antibiotic will not treat, you will receive a phone call from an urgent care staff member and an appropriate antibiotic will be prescribed. -Your symptoms should begin to improve within a day of starting antibiotics. But you should finish all the antibiotic pills you get. Otherwise your infection might come back. -Also recommend: increase water intake. Tylenol/ibuprofen as needed for pain or fever -Follow-up with your primary care provider for urine recheck or seek ER visit if condition worsens with high fever, nausea, vomiting and severe back pain. Patient Language: Moroccan Prescriptions: New amoxicillin-pot clavulanate 875-125 mg tablet 7 tablet PO Q12H 10 Days Qty: 140 0RF No Action metformin 500 mg tablet extended release 24 hr 2,000 mg PO DAILY Qty: 180 3RF albuterol sulfate 90 mcg/actuation HFA aerosol inhaler 1 inh inhalation Q4H PRN (Reason: shortness of breath or wheezing) Qty: 8.5 0RF benzonatate 100 mg capsule 100 mg PO TID PRN (Reason: cough) Qty: 30 0RF (DME) blood sugar diagnostic Strip See Rx Instructions .Route Qty: 100 1RF Rx Instructions: As directed for blood glucose monitoring AC & HS simvastatin 20 mg tablet See Rx Instructions .ROUTE .COMPLEX Qty: 90 3RF Dose Instruction: TAKE 1 TABLET BY MOUTH EVERY DAY IN THE EVENING Rx Instructions: TAKE 1 TABLET BY MOUTH EVERY DAY IN THE EVENING meloxicam 15 mg tablet 15 mg PO DAILY Qty: 90 3RF Januvia 100 mg tablet 100 mg PO DAILY Qty: 90 3RF lisinopril 10 mg tablet See Rx Instructions .ROUTE .COMPLEX Qty: 90 0RF Dose Instruction: TAKE 1 TABLET BY MOUTH DAILY Rx Instructions: TAKE 1 TABLET BY MOUTH DAILY semaglutide 2 mg/dose (8 mg/3 mL) pen injector 2 mg subcut WEEKLY Qty: 3 2RF Follow-up/Referrals: PHYSICIAN,HONING MACHINE SET UP OPERATOR [Primary Care Provider] - Time of Disposition: 18:45
== END 2024-03-07 18:53 | disposition home or self-care (01) ==
PROVIDERS: Emergency Provider Nurse Practitioner
DX: N39.0 Urinary tract infection, site not specified (principal); E11.9 Type 2 diabetes mellitus without complications; Z79.84 Long term (current) use of oral hypoglycemic drugs; I10 Essential (primary) hypertension; E78.5 Hyperlipidemia, unspecified; M19.90 Unspecified osteoarthritis, unspecified site; E66.01 Morbid (severe) obesity due to excess calories; Z68.41 Body mass index [BMI] 40.0-44.9, adult; Z98.84 Bariatric surgery status
CPT/HCPCS: 81003; 87086; 99213; G0463

== ENCOUNTER 2024-08-30 08:18 | Emergency (ER) | payer OTHER, SELFPAY ==
--- NOTE | ~2024-08-30 | CT_ITS ---
EXAMINATION: CT cervical spine wo con DATE: 08/30/2024 09:44 INDICATION: Neck pain TECHNIQUE: Computed tomography (CT) of the cervical spine was performed without intravenous contrast. The dose-length product was 439 mGy-cm. Automated exposure control and iterative reconstruction tech [employer] were employed. COMPARISON: None FINDINGS: There is mild disc narrowing at C5-6, C6-7 and T1-2. There are small marginal osteophytes a t these levels. Odontoid process is normal. Lateral masses align. There is mild multilevel uncinate a nd facet degenerative change. Craniovertebral junction is normal. No evidence for perched facet. No a cute fracture, subluxation or dislocation. No paraspinal soft tissue abnormality. Right thyroid gland is enlarged compared with the left, nonspecific. IMPRESSION: 1. No acute abnormality of the cervical spine. Reviewed, dictated and finalized at location A.
--- NOTE | ~2024-08-30 | CT_ITS ---
EXAM: CT thoracic lumbar wo con - 08/30/2024 9:30 CDT History: 58 years old Female with fall with back injury Comparison None Technique Thin helical images obtained without intravenous contrast according to standard protocol. Coronal an d sagittal reformatted images are provided. Findings No fracture or gross subluxation is appreciated. Multilevel degenerative changes are seen in the spin e. No intraspinal or paraspinal mass or hematoma appreciated. No significant lesion of the visualized a irway or lungs. No gross mass or adenopathy identified, considering lack of IV contrast for this exam. Impression: 1. No acute abnormality of the thoracic or lumbar spine detected by CT. 2. Multilevel degenerative changes are seen. Reviewed, dictated and finalized at location A. Impression: 1. No acute abnormality of the thoracic or lumbar spine detected by CT. 2. Multilevel degenerative changes are seen.
[2024-08-30 08:44] VITALS: BP 137/70; PULSE 97; RESP 20; TEMP 36.9; O2SAT 97
--- NOTE | 2024-08-30 09:13 | ED.FALL ---
HPI - Fall General Chief Complaint: Fall Stated Complaint: fall, back pain Time Seen by Provider: 08/30/24 09:00 History of Present Illness HPI Narrative: Patient is a 58-year-old female who presents to the ER with lower back pain and neck pain. She reports she fell out of her 's truck on Wednesday, 2 days ago. Patient denies hitting her head or loss of consciousness. She reports she landed ?hard on my feet. Patient reports she has had low back pain since the event and his started ?radiating to my neck. She endorses a history of high blood pressure, hyperlipidemia, diabetes, and osteoarthritis in her knees. Patient reports she has been taking her meloxicam and tramadol at home for pain control. She reports at the time of the incident she lost continence but denies any saddle anesthesia since then. Related Data Home Medications ?Medication ?Instructions ?Recorded ?Confirmed ?Last Taken ?Type acetaminophen 650 mg 650 mg PO Q12H 03/27/24 08/30/24 Unknown History tablet,extended release (Tylenol Arthritis Pain) Allergies Allergy/AdvReac Type Severity Reaction Status Date / Time adhesive tape Allergy Mild Rash Verified 08/30/24 08:55 milk Allergy Unknown Unknown Verified 08/30/24 08:55 mushroom AdvReac Severe Vomiting Verified 08/30/24 08:55 levofloxacin AdvReac Unknown Tremor Verified 08/30/24 08:55 Review of Systems Review of Systems: All systems reviewed & are unremarkable except as noted in HPI and below PMFSH Past Medical History Medical History Left arm pain Screen for colon cancer Ganglion cyst of volar aspect of right wrist Diabetes Arthritis Morbid (severe) obesity due to excess calories Anxiety Body mass index (BMI) of 50-59.9 in adult (11/25/18) Elevated hemoglobin Essential hypertension Hyperlipidemia Recurrent candidiasis of vagina Uncontrolled type 2 diabetes mellitus with hyperglycemia Surgical History Surgical History H/O lumpectomy Hx of toe surgery History of hysterectomy Previous section Hx of laparoscopic gastric banding Status post panniculectomy Family History Family History Mother Family history of thyroid disease Diabetes mellitus Family history of malignant neoplasm of thyroid Stage 4 chronic kidney disease CHF (congestive heart failure) Anemia Cancer Hypertension Father Carcinoma of colon Cancer Sepsis UTI Sibling Skin cancer Cancer Grandparent Cancer Family history of thyroid disease Social History Social History Smoking status: Never smoker Second hand tobacco smoke exposure: No Alcohol intake: never Substance use: never Substance use type: does not use Do You Feel Safe in your Home?: Yes Lack of Transportation: No Lack of Food: Never True Current Housing: I Have Housing Concerned About Future Housing: No Difficulty Paying Gas/Electric Bills: YES Difficulty Paying for Meds: YES Currently Unemployed: No Education: Associate Degree Difficulty w/ Childcare or Family Care: No Living arrangements: with family Occupation/Education: occupation 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 HEAD: Normocephalic, atraumatic. NECK: Supple. No adenopathy, no masses. RESPIRATORY: Airway patent, respirations nonlabored. Clear to auscultation bilaterally, no rales, rhonchi, wheezing. CARDIOVASCULAR: Regular rate and rhythm without murmurs, rubs, or gallops. Peripheral pulses 2+ and equal bilaterally. ABDOMINAL: Soft, nontender, nondistended, no hepatosplenomegaly. Normoactive BS. MUSCULOSKELETAL: Moves all extremities. Strength/ROM intact without gross deformities. + cervical and lumbar tenderness SKIN: Warm, dry, normal color. No rashes. NEURO: A&O X3. Speech clear. Cranial nerves II-XII intact. No ataxic movements. PSYCHIATRIC: Appropriate mood and affect. Normal interaction. Course Vital Signs Vital signs: Vital Signs Temperature 36.9 C 08/30/24 08:44 Pulse Rate 97 08/30/24 08:44 Respiratory Rate 20 08/30/24 08:44 Blood Pressure 137/70 08/30/24 08:44 Pulse Oximetry 97 08/30/24 08:44 Oxygen Delivery Room Air 08/30/24 08:44 Temperature 36.9 C 08/30/24 08:44 Pulse Rate 97 08/30/24 08:44 Respiratory Rate 20 08/30/24 08:44 Blood Pressure 137/70 08/30/24 08:44 Pulse Oximetry 97 08/30/24 08:44 Oxygen Delivery Room Air 08/30/24 08:44 MDM - Fall MDM Narrative Medical decision making narrative: Patient is a 58-year-old female who presents to the ER with lower back pain and neck pain. She reports she fell out of her 's truck on Wednesday, 2 days ago. Patient denies hitting her head or loss of consciousness. She reports she landed ?hard on my feet. Patient reports she has had low back pain since the event and his started ?radiating to my neck. She endorses a history of high blood pressure, hyperlipidemia, diabetes, and osteoarthritis in her knees. Patient reports she has been taking her meloxicam and tramadol at home for pain control. She reports at the time of the incident she lost continence but denies any saddle anesthesia since then. Labs Ordered: UA Imaging Ordered: CT lumbar/thoracic/cervical spine, Medications Ordered: Tizanidine p.o., Toradol 60 mg IM, prednisone 40 mg p.o. Results: Pt's CT scan indicates 1. No acute abnormality of the cervical, thoracic or lumbar spine detected by CT. 2. Multilevel degenerative changes are seen. Diagnosis: Lumbar back strain, cervical strain Patient Education/Shared MDM: Results of imaging shared with patient. She endorses improvement of symptoms following medication administration. Patient strongly advised to follow-up with her PCP as soon as possible. She will be discharged home with a prescription for tizanidine. Patient is already on meloxicam and was encouraged to continue this medication. She will be given a 1 time dose of steroids here in the ER, but not given up prescription due to her history of diabetes. Strict return precautions provided. Patient verbalized understanding and is in agreement with plan. Vital signs stable at time of discharge. All questions answered. Differential Diagnosis Differential diagnosis: Likely compression fracture, concussion without loss of consciousness and other (Lumbar strain, cervical strain) Lab Data Attestation: I reviewed the patient's lab results. Labs: Lab Results 08/30/24 Range/Units 10:07 Urine Color Yellow (Yellow) Urine Appearance Clear (Clear) Urine pH 5.0 (5.0-9.0) Ur Specific [place] 1.031 (1.001-1.035) Urine Protein Negative (Negative) mg/dL Urine Glucose (UA) 3+ H (Negative) mg/dL Urine Ketones Negative (Negative) mg/dL Ur Blood (Man) Negative (Negative) Urine Nitrate Negative (Negative) Urine Bilirubin Negative (Negative) Urine Urobilinogen 0.2 (<2.0) mg/dL Leukocyte Esterase Rfl Negative (Negative) LACI/UL Imaging Data Attestation: I personally reviewed and interpreted this imaging study as follows: Radiologist's impression: Impressions Cervical Spine CT 08/30/24 09:51 IMPRESSION: 1. No acute abnormality of the cervical spine. Thoracic/Lumbar Spine CT 08/30/24 10:10 Impression: 1. No acute abnormality of the thoracic or lumbar spine detected by CT. 2. Multilevel degenerative changes are seen. Discharge Plan Discharge Clinical Impression: Lumbar strain, Cervical strain, Fall Patient Disposition: Home Condition: Stable Instructions: Antibiotic Form, Acute Low Back Pain (ED) Additional Instructions: Please return to the ER with any worsening symptoms. Follow-up with primary care provider as needed. Take all medications as prescribed, including regularly scheduled medications. You may use muscle relaxants as needed for pain control. Patient Language: Chilean Prescriptions: New tizanidine 4 mg tablet 4 mg PO BID PRN (Reason: muscle spasticity) Qty: 20 0RF lidocaine 5 % adhesive patch,medicated 2 patch topical DAILY Qty: 30 0RF Rx Instructions: leave on most painful area for up to 12 hrs No Action acetaminophen [Tylenol Arthritis Pain] 650 mg tablet extended release 650 mg PO Q12H metformin 500 mg tablet extended release 24 hr 1,000 mg PO DAILY Qty: 180 3RF Jardiance 10 mg tablet 10 mg PO QAM Qty: 90 1RF lisinopril 10 mg tablet 10 mg PO DAILY Qty: 90 3RF semaglutide 2 mg/dose (8 mg/3 mL) pen injector 2 mg subcut WEEKLY Qty: 9 1RF tramadol 50 mg tablet 50 mg PO Q8H PRN (Reason: pain) Qty: 180 1RF (DME) blood sugar diagnostic Strip See Rx Instructions .Route Qty: 100 1RF Rx Instructions: As directed for blood glucose monitoring AC & HS meloxicam 15 mg tablet 15 mg PO DAILY Qty: 90 3RF albuterol sulfate 90 mcg/actuation HFA aerosol inhaler 1 inh inhalation Q4H PRN (Reason: shortness of breath or wheezing) Qty: 8.5 0RF simvastatin 20 mg tablet See Rx Instructions .ROUTE .COMPLEX Qty: 90 3RF Dose Instruction: TAKE 1 TABLET BY MOUTH EVERY DAY IN THE EVENING Rx Instructions: TAKE 1 TABLET BY MOUTH EVERY DAY IN THE EVENING Follow-up/Referrals: PHYSICIAN NOT ON STAFF,NONSTAFF [Non-Staff] - Stand Alone Forms: Work/School Release IP Time of Disposition: 11:18
[2024-08-30] MEDS: TIZANIDINE HCL 2 MG TABLET PO (09:53)
[2024-08-30] MEDS: KETOROLAC (*BKC) 60 MG/2 ML VIAL IM (09:54)
[2024-08-30 10:28] LABS: Add Urine Microscopic? NO; Appearance Urine Clear (Clear); Glucose Urine UA 3+ mg/dL (Negative); Leukocyte Esterase Ur Negative LEU/UL (Negative); Nitrate Urine Negative (Negative); Specific Grav Ur 1.031 (1.001-1.035)
== END 2024-08-30 11:47 | disposition home or self-care (01) ==
PROVIDERS: Emergency Provider Registered Nurse; PCP Family Medicine
DX: S39.012A Strain of muscle, fascia and tendon of lower back, initial encounter (principal); S16.1XXA Strain of muscle, fascia and tendon at neck level, initial encounter; I10 Essential (primary) hypertension; E78.5 Hyperlipidemia, unspecified; E11.9 Type 2 diabetes mellitus without complications; M17.0 Bilateral primary osteoarthritis of knee; E66.01 Morbid (severe) obesity due to excess calories; Z68.43 Body mass index [BMI] 50.0-59.9, adult; Z98.84 Bariatric surgery status; Z90.710 Acquired absence of both cervix and uterus; Z79.85 Long-term (current) use of injectable non-insulin antidiabetic drugs; Z79.84 Long term (current) use of oral hypoglycemic drugs; Z79.899 Other long term (current) drug therapy; W17.89XA Other fall from one level to another, initial encounter
CPT/HCPCS: 72125; 72128; 72131; 81003; 96372; 99284; A9270; J1885; J7512

== ENCOUNTER 2024-09-18 17:16 | Emergency (ER) | payer OTHER, SELFPAY ==
--- NOTE | 2024-09-18 17:18 | ED.SKABFB ---
HPI - Skin/Abscess/Foreign Bdy General Chief complaint: Skin/Abscess/Foreign Body Stated complaint: Abscess Time Seen by Provider: 09/18/24 17:18 Source: patient Mode of arrival: ambulatory Limitations: no limitations History of Present Illness HPI narrative: Please is a 58-year-old female patient presenting to the clinic today with complaints of a possible abscess x1 week. She reports the abscess is draining and is becoming more tender and painful. She feels feverish. Denies any body aches or chills. Patient is type 2 diabetic. 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 Patient denies any chills, rash, headache, visual changes, dizziness, cough, runny nose, sore throat, shortness of breath, chest pain, palpitations, nausea, vomiting, diarrhea, constipation, abdominal pain, or any urinary issues. [facility] Past Medical History Medical History Left arm pain Screen for colon cancer Ganglion cyst of volar aspect of right wrist Diabetes Arthritis Morbid (severe) obesity due to excess calories Anxiety Body mass index (BMI) of 50-59.9 in adult (11/25/18) Elevated hemoglobin Essential hypertension Hyperlipidemia Recurrent candidiasis of vagina Uncontrolled type 2 diabetes mellitus with hyperglycemia Surgical History Surgical History H/O lumpectomy Hx of toe surgery History of hysterectomy Previous section Hx of laparoscopic gastric banding Status post panniculectomy Family History Family History Mother Family history of thyroid disease Diabetes mellitus Family history of malignant neoplasm of thyroid Stage 4 chronic kidney disease CHF (congestive heart failure) Anemia Cancer Hypertension Father Carcinoma of colon Cancer Sepsis UTI Sibling Skin cancer Cancer Grandparent Cancer Family history of thyroid disease Social History Social History Smoking status: Never smoker Second hand tobacco smoke exposure: No Alcohol intake: never Substance use: never Substance use type: does not use Do You Feel Safe in your Home?: Yes Lack of Transportation: No Lack of Food: Never True Current Housing: I Have Housing Concerned About Future Housing: No Difficulty Paying Gas/Electric Bills: YES Difficulty Paying for Meds: YES Currently Unemployed: No Education: Associate Degree Difficulty w/ Childcare or Family Care: No Living arrangements: with family Occupation/Education: occupation 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 Gender identity (if verbalized by the patient): Female Comments At the time of my signature, I reviewed and agree with the nursing past medical, surgical, social, and family history. There is no relevant family history pertinent to the patient complaint. Exam Narrative: General: Well-developed, well nourished, in no apparent distress Head: Normocephalic, atraumatic. Cardio: Regular rate and rhythm, s1 and s2 normal, no murmur appreciated. Resp: Clear to auscultation bilaterally, no rhonchi, rales, wheezing or rubs. Integumentary: [place], warm, and dry, 1.5x1cm indurated red draining abscess with yellow/brown discharge. TTP Course Course Emergency Course: Portions of this record may have been created with voice recognition software. Level of Care: Express Care Visit Vital Signs Vital signs: Vital Signs Temperature 36.6 C 09/18/24 17:21 Pulse Rate 87 09/18/24 17:21 Respiratory Rate 16 09/18/24 17:21 Blood Pressure 140/76 09/18/24 17:21 Pulse Oximetry 98 09/18/24 17:21 Oxygen Delivery Room Air 09/18/24 17:21 Temperature 36.6 C 09/18/24 17:21 Pulse Rate 87 09/18/24 17:21 Respiratory Rate 16 09/18/24 17:21 Blood Pressure 140/76 09/18/24 17:21 Pulse Oximetry 98 09/18/24 17:21 Oxygen Delivery Room Air 09/18/24 17:21 Vital signs reviewed MDM - Skin/Abscess/Foreign Bdy MDM Narrative Medical decision making narrative: At the time of visit patient is resting comfortably on the exam table. Patient appears to be nontoxic. Abscess x1 week. She reports the abscess is draining and is becoming more tender and painful. She feels feverish. Denies any body aches or chills. Patient is type 2 diabetic. History of boils and being MRSA carrier On exam-1.5x1cm indurated red draining abscess with yellow/brown discharge. TTP. Wound culture obtained Labs: Wound culture was sent to the lab. Plan: I suspect patient has infected abscess to the left inner thigh fold. Wound culture was obtained. Supportive measures were discussed with the patient and they voiced understanding discharge instructions and agrees to treatment plan. Return precautions reviewed Differential Diagnosis Differential diagnosis: Likely abscess of skin or subcutaneous tissue, cellulitis and impetigo Discharge Plan Discharge Clinical Impression: Abscess Patient Disposition: Home Condition: Stable Instructions: Antibiotic Form, Abscess (ED) Additional Instructions: Keep wound covered if draining Keep area clean and dry as much as possible Wash daily with Hibiclens Take Clindamycin as prescribed Take probiotic daily while taking the antibiotics-take 2 hours before 2 hours after 1 of the doses of antibiotics Increase fluids and stay well hydrated May take Tylenol/Motrin as needed for pain or fever as per bottle directions Follow-up with your primary care doctor in 2-3 days for a wound check Patient Language: Botswanan Prescriptions: New chlorhexidine gluconate [Hibiclens] 4 % liquid 1 applic topical ONCE 7 Days Qty: 118 0RF clindamycin HCl [Cleocin HCl] 300 mg capsule 300 mg PO TID 10 Days Qty: 30 0RF No Action acetaminophen [Tylenol Arthritis Pain] 650 mg tablet extended release 650 mg PO Q12H metformin 500 mg tablet extended release 24 hr 1,000 mg PO DAILY Qty: 180 3RF lisinopril 10 mg tablet 10 mg PO DAILY Qty: 90 3RF semaglutide 2 mg/dose (8 mg/3 mL) pen injector 2 mg subcut WEEKLY Qty: 9 1RF tramadol 50 mg tablet 50 mg PO Q8H PRN (Reason: pain) Qty: 180 1RF tizanidine 4 mg tablet 4 mg PO BID PRN (Reason: muscle spasticity) Qty: 20 0RF (DME) blood sugar diagnostic Strip See Rx Instructions .Route Qty: 100 1RF Rx Instructions: As directed for blood glucose monitoring AC & HS albuterol sulfate 90 mcg/actuation HFA aerosol inhaler 1 inh inhalation Q4H PRN (Reason: shortness of breath or wheezing) Qty: 8.5 0RF simvastatin 20 mg tablet See Rx Instructions .ROUTE .COMPLEX Qty: 90 3RF Dose Instruction: TAKE 1 TABLET BY MOUTH EVERY DAY IN THE EVENING Rx Instructions: TAKE 1 TABLET BY MOUTH EVERY DAY IN THE EVENING Jardiance 10 mg tablet 10 mg PO QAM Qty: 90 1RF meloxicam 15 mg tablet 15 mg PO DAILY Qty: 90 3RF Follow-up/Referrals: Charles Sadler MD [Primary Care Provider] - Time of Disposition: 17:42 Quality NIHSS Nursing Documentation ED NIHSS nursing documentation: reviewed/agree
[2024-09-18 17:21] VITALS: BP 140/76; PULSE 87; RESP 16; TEMP 36.6; O2SAT 98
--- NOTE | 2024-09-22 12:21 | PC.NURSE ---
preliminary abscess culture reviewed. heavy growth of group b strep, final gram stain shows moderate gram positive cocci
== END 2024-09-18 17:45 | disposition home or self-care (01) ==
PROVIDERS: Emergency Provider Nurse Practitioner Family; PCP Family Medicine
DX: L02.416 Cutaneous abscess of left lower limb (principal); E11.9 Type 2 diabetes mellitus without complications; Z79.84 Long term (current) use of oral hypoglycemic drugs; I10 Essential (primary) hypertension; E78.5 Hyperlipidemia, unspecified; M19.90 Unspecified osteoarthritis, unspecified site; E66.01 Morbid (severe) obesity due to excess calories; Z68.43 Body mass index [BMI] 50.0-59.9, adult; Z98.84 Bariatric surgery status
CPT/HCPCS: 87070; 87075; 87205; 99213; G0463

== ENCOUNTER 2024-09-22 10:57 | Emergency (ER) | payer OTHER, SELFPAY ==
--- NOTE | ~2024-09-22 | CT_ITS ---
EXAMINATION: CT abdomen pelvis w con DATE: 09/22/2024 13:37 INDICATION: Tunneling left labial abscess TECHNIQUE: Computed tomography (CT) of the abdomen and pelvis was performed with intravenous contrast . The dose-length product was 1818.60 mGy-cm. COMPARISON: 12/22/2022 and 12/02/2023 FINDINGS: Gastric band.Concentric thickening of the day of the distal esophagus possibly due to esophagitis. Liver spleen, adrenal glands, pancreas, gallbladder are unremarkable. Kidneys unremarkable. Abdominal aorta is not aneurysmal. No free fluid in the abdomen or pelvis. Bladder is unremarkable. No colitis. No dilated bowel loops. Small fat-containing ventral hernia ty g the lower abdominal wall. There is a 2.0 x 7.5 x 3.0 cm heterogeneous structure in the left labia. Margins are indistinct. No a ssociated loculated fluid collection. The finding may represent a phlegmon. Recommend follow-up to re solution to exclude a mass. Multilevel degenerative changes visualized spine. Bones appear osteopenic. IMPRESSION: 1. There is a 2.0 x 7.5 x 3.0 cm heterogeneous structure in the left labia. Margins are indistinct. N o associated loculated fluid collection. The finding may represent a phlegmon. Recommend follow-up to resolution to exclude a mass. 2. Concentric thickening of the day of the distal esophagus possibly due to esophagitis. Reviewed, dictated and finalized at location A. IMPRESSION: 1. There is a 2.0 x 7.5 x 3.0 cm heterogeneous structure in the left labia. Mar gins are indistinct. No associated loculated fluid collection. The finding may represent a phlegmon. Recommend follow-up to resolution to exclude a mass. 2. Concentric thickening of the day of the distal esophagus possibly due to e sophagitis.
[2024-09-22 11:00] VITALS: BP 154/89; PULSE 86; RESP 18; TEMP 36.8; O2SAT 97
[2024-09-22 12:21] LABS: Add Urine Microscopic? NO; Appearance Urine Clear (Clear); Glucose Urine UA 3+ mg/dL (Negative); Leukocyte Esterase Ur Negative LEU/UL (Negative); Nitrate Urine Negative (Negative); Specific Grav Ur 1.038 (1.001-1.035)
--- NOTE | 2024-09-22 12:28 | ED_ITS ---
HPI - Skin/Abscess/Foreign Bdy General Chief complaint: Skin/Abscess/Foreign Body Stated complaint: left labial abcsess Time Seen by Provider: 09/22/24 12:01 History of Present Illness HPI narrative: This is a 58 yo female with history of diabetes, hypertension who presents to the ED for a labial abscess. Patient states that for the past few weeks, she has been having a left labial abscess that has been draining pus. She has been following up with her PCP for this and was given clindamycin until yesterday after culture from Wednesday showed that it was Streptococcus so she was switched to Augmentin. She has an appointment with a electroencephalogram technologist on Wednesday but she was told by her PCP if it stops draining to come to the ED for further evaluation. Patient denies fevers, chills, vaginal bleeding. Related Data Home Medications ?Medication ?Instructions ?Recorded ?Confirmed ?Last Taken ?Type acetaminophen 650 mg 650 mg PO Q12H 03/27/24 09/21/24 Unknown History tablet,extended release (Tylenol Arthritis Pain) Allergies Allergy/AdvReac Type Severity Reaction Status Date / Time adhesive tape Allergy Mild Rash Verified 09/21/24 09:18 milk Allergy Unknown Unknown Verified 09/21/24 09:18 mushroom AdvReac Severe Vomiting Verified 09/21/24 09:18 levofloxacin AdvReac Unknown Tremor Verified 09/21/24 09:18 Review of Systems 2 Review of Systems: Gen.: Denies fevers or chills Eyes: Denies eye pain or visual change ENT: Denies congestion Respiratory: Denies shortness of breath or cough CV: Denies chest pain or palpitations GI: Denies abdominal pain nausea, emesis or diarrhea denies burning, urgency, frequency or hematuria Musculoskeletal: Denies back pain or muscle pain Neuro: Denies numbness, tingling, weakness or focal weakness Skin: Denies rash Except as documented, all other systems reviewed and negative PMFSH Past Medical History Medical History Left arm pain Screen for colon cancer Ganglion cyst of volar aspect of right wrist Diabetes Arthritis Morbid (severe) obesity due to excess calories Anxiety Body mass index (BMI) of 50-59.9 in adult (11/25/18) Elevated hemoglobin Essential hypertension Hyperlipidemia Recurrent candidiasis of vagina Uncontrolled type 2 diabetes mellitus with hyperglycemia Surgical History Surgical History H/O lumpectomy Hx of toe surgery History of hysterectomy Previous section Hx of laparoscopic gastric banding Status post panniculectomy Family History Family History Mother Family history of thyroid disease Diabetes mellitus Family history of malignant neoplasm of thyroid Stage 4 chronic kidney disease CHF (congestive heart failure) Anemia Cancer Hypertension Father Carcinoma of colon Cancer Sepsis UTI Sibling Skin cancer Cancer Grandparent Cancer Family history of thyroid disease Social History Social History Smoking status: Never smoker Second hand tobacco smoke exposure: No Alcohol intake: never Substance use: never Substance use type: does not use Do You Feel Safe in your Home?: Yes Lack of Transportation: No Lack of Food: Never True Current Housing: I Have Housing Concerned About Future Housing: No Difficulty Paying Gas/Electric Bills: YES Difficulty Paying for Meds: YES Currently Unemployed: No Education: Associate Degree Difficulty w/ Childcare or Family Care: No Living arrangements: with family Occupation/Education: occupation 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 CARDIOVASCULAR: Regular rate and rhythm without murmurs rubs or gallops. ABDOMINAL: Obese. Soft, nontender, nondistended, no rebound or guarding : Solid Waste Engineer present. Swelling to the left superior labia with deep induration, no areas of fluctuance, no drainage or erythema MUSCULOSKELETAl: Moves all extremities. No clubbing, cyanosis or edema. NEURO: Awake and alert. Following commands, speech normal, no focal deficits SKIN:: Warm, dry. No rashes lesions or abrasions PSYCHIATRIC: Normal affect/mood, Course Vital Signs Vital signs: Vital Signs Temperature 98.3 F 09/22/24 11:00 Pulse Rate 86 09/22/24 11:00 Respiratory Rate 18 09/22/24 11:00 Blood Pressure 154/89 H 09/22/24 11:00 Pulse Oximetry 97 09/22/24 11:00 Oxygen Delivery Room Air 09/22/24 11:00 Temperature 98.3 F 09/22/24 11:00 Pulse Rate 86 09/22/24 11:00 Respiratory Rate 18 09/22/24 11:00 Blood Pressure 154/89 H 09/22/24 11:00 Pulse Oximetry 97 09/22/24 11:00 Oxygen Delivery Room Air 09/22/24 11:00 MDM - Skin/Abscess/Foreign Bdy MDM Narrative Medical decision making narrative: 58-year-old female presented to the ED for concerns for labial abscess. Initial vital signs stable. Patient no acute distress. exam did reveal a deep indurated area approximately 1 x 3 cm to the left labia with no areas of fluctuance. No obviously drainable collection. Given the other was concerned this may be a tunneling abscess, CT scan was obtained. This did show a phlegmon with no fluid collections. I believe the patient did have an abscess that has completed drainage at this point. Patient is already scheduled with Gynecology Wednesday which I encouraged her to go to. She is on Augmentin which is targeted to the Streptococcus bacteremia culture. Patient was not on Tylenol and ibuprofen use. Patient was agreeable to this plan. Given return precautions. Differential Diagnosis Differential diagnosis: Likely abscess of skin or subcutaneous tissue and other (bartholin gland cyst) Medical Records Attestation: I reviewed the patient's medical records. Lab Data Attestation: I reviewed the patient's lab results. 09/22/24 12:53 09/22/24 12:53 Labs: Lab Results 09/22/24 09/22/24 Range/Units 12:14 12:53 WBC 9.8 (4.5-10.0) K/mm3 RBC 4.95 (4.2-5.4) M/mm3 Hgb 14.1 (12.0-15.0) g/dL Hct 44.2 (37.0-47.0) % MCV 89.3 (80-100) fl MCH 28.5 (26-34) pg MCHC 31.9 L (32-36) g/dl RDW 13.8 (11.5-14.5) % Plt Count 418 H (150-375) k/mm3 MPV 8.9 (7.4-10.4) fl Immature Gran % (Auto) 0.9 H (0-0.5) % Neut % (Auto) 65.4 (45.5-73.1) % Lymph % (Auto) 23.3 (18.3-44.2) % [place] % (Auto) 5.9 (2.6-8.5) % Eos % (Auto) 3.8 (0-4.4) % Baso % (Auto) 0.7 (0.2-1.2) % Lymph # (Auto) 2.28 (0.9-3.2) K/mm3 [place] # (Auto) 0.6 (0.1-0.6) K/mm3 Eos # (Auto) 0.4 H (0-0.3) K/mm3 Baso # (Auto) 0.1 (0.0-0.1) K/mm3 Abs Immat Gran (auto) 0.09 H (0.00-0.031) K/mm3 Absolute Neuts (auto) 6.4 (1.3-6.7) K/mm3 Absolute Nucleated RBC 0.000 (0.0-0.012) K/mm3 Nucleated RBC % 0.0 (0.0-0.2) % Sodium 136 L (137-145) mmol/L Potassium 4.4 (3.4-5.0) mmol/L Chloride 106 (98-107) mmol/L Carbon Dioxide 19 L (22-30) mmol/L Anion Gap 11 (4-12) mmol/L BUN 16 (7-17) mg/dL Creatinine 0.74 (0.7-1.0) mg/dL Estim Creat Clear Calc 115 ml/min Estimated GFR > 60 (59 - ) Glucose 190 H (65-110) mg/dL Calcium 9.7 (8.4-10.2) mg/dL Urine Color Yellow (Yellow) Urine Appearance Clear (Clear) Urine pH 5.0 (5.0-9.0) Ur Specific [place] 1.038 H (1.001-1.035) Urine Protein Negative (Negative) mg/dL Urine Glucose (UA) 3+ H (Negative) mg/dL Urine Ketones Negative (Negative) mg/dL Ur Blood (Man) Negative (Negative) Urine Nitrate Negative (Negative) Urine Bilirubin Negative (Negative) Urine Urobilinogen 0.2 (<2.0) mg/dL Leukocyte Esterase Rfl Negative (Negative) LACI/UL Imaging Data Radiologist's impression: Impressions Abdomen/Pelvis CT 09/22/24 13:47 IMPRESSION: 1. There is a 2.0 x 7.5 x 3.0 cm heterogeneous structure in the left labia. Margins are indistinct. No associated loculated fluid collection. The finding may represent a phlegmon. Recommend follow-up to resolution to exclude a mass. 2. Concentric thickening of the day of the distal esophagus possibly due to esophagitis. Discharge Plan Discharge Clinical Impression: Abscess of labia Patient Disposition: Home Condition: Stable Instructions: Antibiotic Form, Abscess (ED) Patient Language: Mosotho Prescriptions: No Action chlorhexidine gluconate [Hibiclens] 4 % liquid 1 applic topical ONCE 7 Days Qty: 118 0RF acetaminophen [Tylenol Arthritis Pain] 650 mg tablet extended release 650 mg PO Q12H metformin 500 mg tablet extended release 24 hr 1,000 mg PO DAILY Qty: 180 3RF lisinopril 10 mg tablet 10 mg PO DAILY Qty: 90 3RF semaglutide 2 mg/dose (8 mg/3 mL) pen injector 2 mg subcut WEEKLY Qty: 9 1RF tramadol 50 mg tablet 50 mg PO Q8H PRN (Reason: pain) Qty: 60 0RF amoxicillin-pot clavulanate 875-125 mg tablet 1 tablet PO BID 10 Days Qty: 20 0RF eszopiclone [Lunesta] 1 mg tablet 1 mg PO QHS Qty: 20 0RF tizanidine 4 mg tablet 4 mg PO BID PRN (Reason: muscle spasticity) Qty: 20 0RF (DME) blood sugar diagnostic Strip See Rx Instructions .Route Qty: 100 1RF Rx Instructions: As directed for blood glucose monitoring AC & HS albuterol sulfate 90 mcg/actuation HFA aerosol inhaler 1 inh inhalation Q4H PRN (Reason: shortness of breath or wheezing) Qty: 8.5 0RF simvastatin 20 mg tablet See Rx Instructions .ROUTE .COMPLEX Qty: 90 3RF Dose Instruction: TAKE 1 TABLET BY MOUTH EVERY DAY IN THE EVENING Rx Instructions: TAKE 1 TABLET BY MOUTH EVERY DAY IN THE EVENING Jardiance 10 mg tablet 10 mg PO QAM Qty: 90 1RF meloxicam 15 mg tablet 15 mg PO DAILY Qty: 90 3RF Follow-up/Referrals: Charles Sadler MD [Primary Care Provider] -
[2024-09-22] MEDS: KETOROLAC 30 MG/ML VIAL (*BKC) IV PUSH (12:51)
[2024-09-22 13:12] LABS: Hematocrit 44.2 % (37.0-47.0); Hemoglobin 14.1 g/dL (12.0-15.0); Immature Granulocyte Percent A 0.9 % (0-0.5); Lymphocytes Absolute Auto 2.28 K/mm3 (0.9-3.2); Mean Corpuscular HGB Conc 31.9 g/dl (32-36); Mean Corpuscular Hemoglobin 28.5 pg (26-34); Mean Corpuscular Volume 89.3 fl (80-100); Nucleated Red Blood Cells Absolute Auto 0.000 K/mm3 (0.0-0.012); Nucleated Red Blood Cells Perc 0.0 % (0.0-0.2); Platelet Count Result 418 k/mm3 (150-375); Red Blood Count 4.95 M/mm3 (4.2-5.4); White Blood Count 9.8 K/mm3 (4.5-10.0)
[2024-09-22 13:18] LABS: Anion Gap 11 mmol/L (4-12); Blood Urea Nitrogen 16 mg/dL (7-17); Calcium 9.7 mg/dL (8.4-10.2); Carbon Dioxide 19 mmol/L (22-30); Chloride 106 mmol/L (98-107); Estimated CRCL calculation 115 ml/min; Estimated Glomerular Filt Rate > 60; Glucose 190 mg/dL (65-110); Potassium 4.4 mmol/L (3.4-5.0); Sodium 136 mmol/L (137-145)
== END 2024-09-22 14:54 | disposition home or self-care (01) ==
PROVIDERS: Emergency Provider Student in an Organized Health Care Education/Training Program; PCP Family Medicine
DX: N76.4 Abscess of vulva (principal); I10 Essential (primary) hypertension; E11.9 Type 2 diabetes mellitus without complications; E66.01 Morbid (severe) obesity due to excess calories; Z68.43 Body mass index [BMI] 50.0-59.9, adult; E78.5 Hyperlipidemia, unspecified; M19.90 Unspecified osteoarthritis, unspecified site; Z98.84 Bariatric surgery status; Z90.710 Acquired absence of both cervix and uterus; Z79.85 Long-term (current) use of injectable non-insulin antidiabetic drugs; Z79.84 Long term (current) use of oral hypoglycemic drugs; Z79.899 Other long term (current) drug therapy
CPT/HCPCS: 36415; 74177; 80048; 81003; 85025; 96374; 99284; J1885; Q9967

== ENCOUNTER 2024-11-30 08:22 | Emergency (ER) | payer OTHER, SELFPAY ==
--- NOTE | ~2024-11-30 | CT_ITS ---
CT abdomen pelvis w con Clinical History: RLQ, suprapubic abdominal pain . Comparison: CT abdomen pelvis 09/22/2024 Technique: Axial images lung bases to symphysis pubis IV contrast information not listed in PACS Coronal, sagittal reformats CT images acquired with automatic exposure control for dose reduction DLP: 1745 mGy-cm Findings: Lung bases: Clear. Visualized heart and pericardium: Unremarkable. Liver: Steatosis. Gallbladder: Unremarkable. Spleen: Unremarkable. Pancreas: Unremarkable. Adrenal glands: Unremarkable. Kidneys: Right kidney- No hydronephrosis. No renal stones. Left kidney- No hydronephrosis. No renal stones. Distal esophagus/stomach: Gastric band. Distal esophageal wall thickening/esophagitis Small bowel loops: Normal caliber and wall thickness. Colon: Diverticula. Normal caliber and wall thickness. Normal RLQ appendix likely identified. Nodes: No enlarged nodes. Small inguinal nodes Peritoneum: No ascites. No free air. Urinary bladder: Unremarkable. Uterus: Unremarkable. Adnexa: No masses. Bones: No acute bony abnormality. Soft tissues: Small tandem ventral hernias with fat. No significant stranding within hernia sacs. Aorta: No aneurysm or dissection. IVC: Unremarkable. Main portal vein/SMV/splenic vein: Patent. IMPRESSION: 1. No acute findings. Reviewed, dictated and finalized at location R. IMPRESSION: 1. No acute findings.
--- NOTE | ~2024-11-30 | XR_ITS ---
Examination: XR chest 1V Clinical History: Viral syndrome Comparison: None Technique: Portable AP Findings: Heart size upper limit of normal. Lungs clear. No acute bony abnormality. Gastric band. IMPRESSION: 1. No acute cardiopulmonary findings given portable technique. Reviewed, dictated and finalized at location R.
[2024-11-30 08:29] VITALS: BP 146/74; PULSE 83; RESP 12; TEMP 37; O2SAT 97
--- OUTSIDE RECORDS SUMMARY | 2024-11-30 08:29 | XMS_ITS | Encounter Summary ---
Author Organization [facility] Address [address] [facility] [address] [place] [address] Phone Care Team Providers Care Geographic Information Systems Analyst Name Role Phone Charles Sadler MD Primary Care Provider + [phone] Sal Elmore MD Unavailable Reason for Visit * Reason Onset Date Comments Scheduling Appointments 11/21/2024 Encounter Details Date Type Department Care Team (Late st Contact Info) Description 11/21/2024 Telephone [facility] Medicine Surgery [address] [facility] [address] [place] [address] Mariangel Cabrera MD PhD [address] [facility] [id number] [place] [address] Scheduling Appointments Social History Tobacco Use Types Packs/Day Years Used Date Smoking Tobacco: Never Smokeless Tobacco: Never AUDIT-C Answer Date Recorded Q1: How often do you have a drink containing alc ohol? Never 12/21/2020 Average Number of Drinks Not on file 021 Frequency of Binge Drinking Not on file 12/09 Comments No Sex and Gender Information Value Date Recorded Sex Assigned at Not on file Legal Sex Female 8:38 AM CDT Gender Identity Not on file Sexual Orientation Not on file documented as of this encounter Plan of Treatment Not on file documented as of this encounter Visit Diagnoses Not on filedocumented in this encounter Care Teams Geographic Information Systems Analyst Relationship Specialty Start Date End Date Charles Sadler MD PCP - General Family Medicine 09/23/20 Sal Elmore MD Consulting Physician General Surgery 12/25/20 documented as of this encounter
--- OUTSIDE RECORDS SUMMARY | 2024-11-30 08:29 | XMS_ITS | Clinical Summary ---
Author Organization [facility] Address [address] [place] [phone] Care Team Providers Care Powered Bridge Specialist Name Role Phone Charles Sadler MD Primary Care Provider [phone] Sal Elmore MD Unavailable Allergies Active Allergy Reactions Criticality Noted Date Comments Adhesive Blisters High 10/21/2020 Levofloxacin Other (See comments) Low 10/21/2020 Pt reports she gets the jitters Milk Other (See comments) Low 10/21/2020 Upset stomach Other Other (See comments) Low 11/15/2020 Plastic tape Medications meloxicam (MOBIC) 15 mg tabletIndication s:Osteoarthritis Take 15 mg by mouth every morning 1 Active simvastatin (ZOCOR) 20 mg tabletIndication s:hyperlipidemia Take 20 mg by mouth every evening 1 Active Ozempic 1 mg/dose (4 mg/3 mL) pen injector injectionIndicat ions:type 2 diabetes mellitus Inject 1 mg under the skin once a week EVERY Wednesday 1 Active metFORMIN XR (GLUCOPHAGE XR) 500 mg 24 hr tabletIndication s:type 2 diabetes mellitus Take 1,000 mg by mouth 2 (two) times a day 1 Active SITagliptin (JANUVIA) 100 mg tabletIndication s:type 2 diabetes mellitus Take 100 mg by mouth every morning Active phenazopyridine HCl (AZO ORAL)Indications :bladder Take 1 tablet by mouth every morning Active docusate sodium (COLACE) 100 mg capsuleIndicatio ns:constipation Take 1 capsule (100 mg total) by mouth 2 (two) times a day with a glass of water 8 capsule 1 Active silver sulfadiazine (SILVADENE, SSD) 1 % cream Apply topically daily 50 g 1 Active Additional Information Patient not taking.Reported on 01/09/2021 fluconazole (DIFLUCAN) 150 mg tablet 1 Active nitrofurantoin monohydrate (MACROBID) 100 mg capsule TAKE 1 CAPSULE BY MOUTH EVERY 12 HOURS FOR 7 DAYS 1 Active Hospital, Clinic, or Other Facility Administered Medication Ordered Dose Route Frequency Start Date End Date Status silver sulfadiazine (SILVADENE, SSD) 1 % creamIndications:Skin flap necrosis (HCC) topical 2 times daily 12/12/2020 Ac tive Active Problems Problem Noted Date Diagnosed Date Morbid obesity with BMI of 45.0-49.9, adult 12/09 Hyperlipidemia 12/22/2020 Abscess of breast 12/21/2020 Assessment & Plan (01/23/2021 9:00 AM CHANNEL PROCESS SUPERVISOR): The cavity is about 90% smaller than last visit. We discussed doing the packing for another 4 or 5 days and then she Should be able to stop. She will call us with any further questions or concerns. Assessment & Plan (01/09/2021 8:41 AM CHANNEL PROCESS SUPERVISOR): The cavity is about 75% smaller than when she was admitted to the hospital and without any further drainage. The wound is granulating in nicely. She will likely need to do the dressing changes for about another week and then it should be healed. We will see her back in 10-14 days to reassess 1 further time. She will call sooner if anything changes Bloody discharge from nipple 11/13/2020 Overview (11/13/2020): Added automatically from request for surgery [id number] Diabetes Overweight Generalized headaches Resolved Problems Problem Noted Date Diagnosed Date Resolved Date Surgical wound infection 12/22/2020 Encounters Date Type Department Care Team Description 11/24/2024 Orders Only [facility] Medicine Surgery [address] [facility] [address] [place] [address] Mariangel Cabrera MD PhD Hx of abscess of breast (Primary Dx) 11/24/2024 Telephone [facility] Medicine Surgery [address] [place] [phone] Mariangel Cabrera MD PhD 11/21/2024 Telephone [facility] [address] [place] [phone] Mariangel Cabrera MD PhD Scheduling Appointments 11/21/2024 Telephone [facility] Surgery [address] [place] [phone] Mariangel Cabrera MD PhD Scheduling Appointments 11/21/2024 [facility] Surgery [address] [place] [phone] Mariangel Cabrera MD PhD 11/21/2024 Telephone [facility] Medicine Surgery [address] [place] [phone] Mariangel Cabrera MD PhD Scheduling Appointments 11/09/2024 Telephone [facility] Surgery [address] [place] [phone] Mariangel Cabrera MD PhD Scheduling Appointments from Last 3 Months Surgical History Surgery Date Site/Laterality Comments HYSTERECTOMY 02/09/2004 - 02/07/2005 SECTION 02/08/1999 - 02/08/2000 LAPAROSCOPIC GASTRIC BANDING 02/08/2011 - 02/08/2012 PANNICULECTOMY 02/08/2014 - 02/07/2015 BREAST BIOPSY 10/31/2020 Right Medical History Medical History Date Comments Generalized headaches Diabetes Overweight Family History Medical History Relation Name Comments Melanoma Brother Colon cancer Father 70's Cervical cancer Maternal Grandmother Thyroid cancer Mother 70's brain tumor Mother's Brother Leukemia Mother's Sister Bone cancer Paternal Grandfather Lung cancer Paternal Grandmother Anesthesia problems Neg Hx Relation Name Status Comments Brother Father Maternal Grandmother Mother Mother's Brother Mother's Sister Paternal Grandfather Paternal Grandmother Social History Tobacco Use Types Packs/Day Years [...] on file Sexual Orientation Not on file Obstetrics History Last Filed Vital Signs Vital Sign Reading Time Taken Comments Blood Pressure 137/78 01/23/2021 8:50 AM CHANNEL PROCESS SUPERVISOR Pulse 68 01/23/2021 8:50 AM CHANNEL PROCESS SUPERVISOR Temperature 35.8 C (96.4 F) 01/23/2021 8:50 AM CHANNEL PROCESS SUPERVISOR Respiratory Rate 18 12/25/2020 11:0 0 AM CHANNEL PROCESS SUPERVISOR Oxygen Saturation 98% 01/23/2021 8:50 AM CHANNEL PROCESS SUPERVISOR Inhaled Oxygen Concentration - - Weight 147.7 kg (325 lb 9.9 oz) 12/25/2021 9:55 AM CHANNEL PROCESS SUPERVISOR Height 172.7 cm (5' 7.99) 12/25/2021 9:55 AM CS T Body Mass Index 49.52 12/25/2021 9:55 AM CHANNEL PROCESS SUPERVISOR Plan of Treatment Health Maintenance Due Date Last Done Comments Albumin Creatinine Ratio, Urine 1966 Colon Cancer Screening-Colonoscopy 1966 Depression Screening 1966 Hemoglobin A1C 1966 Hepatitis C Screening 1966 Dilated Eye Exam 1966 Foot Exam 1966 Lipid Panel 1966 DTaP/Tdap/Td Vaccine (1 - Tdap) 1977 Hepatitis B Screening 1984 Regular Well Visit/Exam 18-64 1984 Pneumococcal vaccine <65 (1 of 2 - PCV) 1985 Zoster Vaccine (1 of 2) 2016 eGFR 12/25/2021 12/25/2020, 12/09, 12/23/2020, Additional history exists Breast Cancer Screening-Mammogram 02/21/2024 024, 12/25/2021 Influenza Vaccine (#1) 2024 Procedures Procedure Name Priority Date/Time Associated Diagnosis Comments SCREENING MAMMOGRAM BILATERAL W RONALD Schedule Routine, Read Routine (OP Routine) 02/20/2023 10:28 AM CHANNEL PROCESS SUPERVISOR Screening mammogram, encounter for EGFR Routine 12/25/2020 7:38 AM CHANNEL PROCESS SUPERVISOR from Last 3 Months or Most Recently Relevant to Health Maintenance Results * Screening Mammogram Bilateral W Ronald (02/20/2023 10:28 AM CHANNEL PROCESS SUPERVISOR) Anatomical Region Laterality Modality Breast Bilateral Mammography Narrative 02/22/2023 2:23 PM CHANNEL PROCESS SUPERVISOR Mammogram Technique: Bilateral Digital Breast Tomosynthesis, Bilateral C-view 2D Screening mammogram. Views obtained: bilateral craniocaudal and bilateral mediolateral oblique. Computer Aided Detection was performed. Mammogram Findings: The present examination has been compared to prior imaging studies performed at [facility] on 10/21/2020 and 12/25/2021. The breasts are almost entirely fatty. There is no suspicious abnormality in either breast. Impression: There is no mammographic evidence of malignancy. Annual screening mammography is recommended. OVERALL FINAL ASSESSMENT: BI-RADS CATEGORY 1: Negative. Procedure Note Bonnie Martinez MD - 02/22/2023 Mammogram Technique: Bilateral Digital Breast Tomosynthesis, Bilateral C-view 2D Screening mammogram. Views obtained: bilateral craniocaudal and bilateral mediolateral oblique. Computer Aided Detection was performed. Mammogram Findings: The present examination has been compared to prior imaging studies performed at [facility] on 10/21/2020 and 12/25/2021. The breasts are almost entirely fatty. There is no suspicious abnormality in either breast. Impression: There is no mammographic evidence of malignancy. Annual screening mammography is recommended. OVERALL FINAL ASSESSMENT: BI-RADS CATEGORY 1: Negative. us Self Screening Mammogram IMG MAMMO PROCEDURES Fi nal Result * eGFR (12/25/2020 7:38 AM CHANNEL PROCESS SUPERVISOR) eGFR 101 mL/min/1.7 3 m2 DAVIS DEE (FABRICIO) Comment: Interpretive Data Reference Interval Normal >/= 90 mL/min/1.73m2 Mildly decreased* 60 - 89 mL/min/1.73m2 Mildly to moderately decreased 45 - 59 mL/min/1.73m2 Moderately to severely decreased 30 - 44 mL/min/1.73m2 Severely decreased 15 - 29 mL/min/1.73m2 Kidney Failure < 15 mL/min/1.73m2 *Relative to young adult level Estimated glomerular filtration rate is determined by the CKD-EPI equation recommended by the National Kidney Foundation (KDIGO 2012 Clinical Practice Guideline for the Evaluation and Management of Chronic Kidney Disease. Kidney Intnl Suppl Feb 2012;3:1). The CKD-EPI equation should not be used for patients with unstable renal function and has not been validated in children and those over 70. Current interpretive data was last reviewed 2020 Blood 12/25/2020 7:38 AM CHANNEL PROCESS SUPERVISOR 12/25/2020 7:44 AM CHANNEL PROCESS SUPERVISOR Sal Elmore MD LAB BLOOD ORDERA BLES Final Result Performing Organization Address City/State/[facility] Co de Phone Number [facility] Department [place] [address] from Last 3 Months or Most Recently Relevant to Health Maintenance Insurance [facility] [id number] [employer] Advance Directives For more information, please contact: [phone] * Full Code (Latest Code Status on File) Date Activated Date Inactivated Comments 12/21/2020 9:11 PM 12/25/2020 6:23 PM Care Teams Powered Bridge Specialist Relationship Specialty Start Date End Date Charles Sadler MD PCP - General Family Medicine 09/23/20 Sal Elmore MD Consulting Physician General Surgery 12/25/20
--- OUTSIDE RECORDS SUMMARY | 2024-11-30 08:29 | XMS_ITS | Encounter Summary ---
Author Organization [facility] Address [address] [facility] [address] [place] [address] Phone Care Team Providers Care Oral Surgeon Name Role Phone Charles Sadler MD Primary Care Provider + [phone] Sal Elmore MD Unavailable Reason for Visit * Reason Onset Date Comments Scheduling Appointments 11/21/2024 Encounter Details Date Type Department Care Team (Late st Contact Info) Description 11/21/2024 Telephone [facility] Medicine Surgery [address] [facility] [address] [place] [address] Mariangel Cabrera MD PhD [address] [facility] [phone] [place] [address] Scheduling Appointments Social History Tobacco Use Types [...] on file documented as of this encounter Miscellaneous Notes * Telephone Encounter - Ashlie Cook CMA - 11/27/2024 2:15 PM CDT Scheduled for 03/2025 * Telephone Encounter - Kalani Weber - 11/21/2024 11:12 AM CDT Patient Query: Was an attempt to transfer to the assigned clinical staff or backline? Back line advised to send a TE . Reason for call?: Patient is retuning a call she received to schedule an appointment and Mammogram with Dr Cabrera ,please call back Who is the caller: Patient What is the best number for them to contact for a call back: [phone] Last office visit: 11/21/2024 Date of Surgery: 12/23/2020 documented in this encounter Plan of Treatment Not on file documented as of this encounter Visit Diagnoses Not on filedocumented in this encounter Care Teams Oral Surgeon Relationship Specialty Start Date End Date Charles Sadler MD PCP - General Family Medicine 09/23/20 Sal Elmore MD Consulting Physician General Surgery 12/25/20 documented as of this encounter
--- OUTSIDE RECORDS SUMMARY | 2024-11-30 08:29 | XMS_ITS | Encounter Summary ---
Author Organization [facility] Address [address] [facility] [address] [place] [address] Phone Care Team Providers Care Blast Furnace Keeper Helper Name Role Phone Charles Sadler MD Primary Care Provider + [phone] Sal Elmore MD Unavailable Reason for Visit * Reason Onset Date Comments Scheduling Appointments 11/21/2024 Encounter Details Date Type Department Care Team (Late st Contact Info) Description 11/21/2024 Telephone [facility] Medicine Surgery [address] [facility] [address] [place] [address] Mariangel Cabrera MD PhD [address] [facility] [phone] [place] [address] Scheduling Appointments Social History Tobacco Use Types [...] on filedocumented in this encounter Care Teams Blast Furnace Keeper Helper Relationship Specialty Start Date End Date Charles Sadler MD PCP - General Family Medicine 09/23/20 Sal Elmore MD Consulting Physician General Surgery 12/25/20 documented as of this encounter
[2024-11-30 08:56] LABS: Add Urine Microscopic? YES; Appearance Urine Clear (Clear); Glucose Urine UA Negative (Negative); Leukocyte Esterase Ur Trace LEU/UL (Negative); Nitrate Urine Negative (Negative); Non Pathogenic Casts 0-2; Specific Grav Ur 1.020 (1.001-1.035)
[2024-11-30 08:56] LABS: Hematocrit 43.0 % (37.0-47.0); Hemoglobin 14.2 g/dL (12.0-15.0); Immature Granulocyte Percent A 0.6 % (0-0.5); Lymphocytes Absolute Auto 1.09 K/mm3 (0.9-3.2); Mean Corpuscular HGB Conc 33.0 g/dl (32-36); Mean Corpuscular Hemoglobin 29.1 pg (26-34); Mean Corpuscular Volume 88.1 fl (80-100); Nucleated Red Blood Cells Absolute Auto 0.000 K/mm3 (0.0-0.012); Nucleated Red Blood Cells Perc 0.0 % (0.0-0.2); Platelet Count Result 264 k/mm3 (150-375); Red Blood Count 4.88 M/mm3 (4.2-5.4); White Blood Count 4.8 K/mm3 (4.5-10.0)
[2024-11-30 09:17] LABS: Alanine Aminotransferase 24 U/L (6-35); Albumin Level 3.9 g/dL (3.5-5.1); Alkaline Phosphatase 85 U/L (38-126); Anion Gap 8 mmol/L (4-12); Aspartate Amino Transferase 33 U/L (14-36); Bilirubin,Total 0.7 mg/dL (0.2-1.3); Blood Urea Nitrogen 12 mg/dL (7-17); Calcium 8.8 mg/dL (8.4-10.2); Carbon Dioxide 24 mmol/L (22-30); Chloride 104 mmol/L (98-107); Estimated CRCL calculation 118 ml/min; Estimated Glomerular Filt Rate > 60; Glucose 117 mg/dL (65-110); Lipase 62 U/L (23-300); Potassium 4.1 mmol/L (3.4-5.0); Sodium 136 mmol/L (137-145); Total Protein 7.0 g/dL (6.3-8.2)
[2024-11-30 09:39] VITALS: BP 126/70; PULSE 79; RESP 12; O2SAT 100
[2024-11-30] MEDS: SODIUM CHLORIDE 0.9% IV 1,000 ML 999 ML IV CONT (09:39)
--- NOTE | 2024-11-30 09:40 | PC.NURSE ---
Pt to CT scan via stretcher at this time.
--- NOTE | 2024-11-30 09:41 | ED_ITS ---
HPI - General Adult General Chief complaint: Nausea/Vomiting/Diarrhea Stated complaint: chills, headache Time Seen by Provider: 11/30/24 08:28 History of Present Illness HPI narrative: This is a 59-year-old female presenting with 1 week of viral symptoms. Patient says she has not felt well. Symptoms have included body aches headaches nausea vomiting and loose stools. Several days ago she developed hematuria and saw her primary care physician at that time had no blood in her urine and no signs of infection. She does not currently have any dysuria urgency or frequency. he is now having constant right lower quadrant/suprapubic pain. She has not taken her temperature at home. She denies chest pain or difficulty breathing. Patient was recently treated for a labial abscess and has been cleared by her OBGYN. She has not any further issues. Related Data Home Medications ?Medication ?Instructions ?Recorded ?Confirmed ?Last Taken ?Type acetaminophen 650 mg 650 mg PO Q12H 03/27/2411/09 Unknown History tablet,extended release (Tylenol Arthritis Pain) Allergies Allergy/AdvReac Type Severity Reaction Status Date / Time adhesive tape Allergy Mild Rash Verified 11/30/24 08:33 milk Allergy Unknown Unknown Verified 11/30/24 08:33 mushroom AdvReac Severe Vomiting Verified 11/30/24 08:33 empagliflozin (From AdvReac Intermediate Rash Verified 11/30/24 08:33 Jardiance) levofloxacin AdvReac Unknown Tremor Verified 11/30/24 08:33 PMFSH Past Medical History Medical History (Updated 11/30/24 @ 11:20 by David Gutiérrez MD) Nausea & vomiting Flank pain Gross hematuria Left arm pain Screen for colon cancer Ganglion cyst of volar aspect of right wrist Diabetes Arthritis Morbid (severe) obesity due to excess calories Anxiety Body mass index (BMI) of 50-59.9 in adult (11/25/18) Elevated hemoglobin Essential hypertension Hyperlipidemia Recurrent candidiasis of vagina Uncontrolled type 2 diabetes mellitus with hyperglycemia Surgical History Surgical History H/O lumpectomy Hx of toe surgery History of hysterectomy Previous section Hx of laparoscopic gastric banding Status post panniculectomy Family History Family History Mother Family history of thyroid disease Diabetes mellitus Family history of malignant neoplasm of thyroid Stage 4 chronic kidney disease CHF (congestive heart failure) Anemia Cancer Hypertension Father Carcinoma of colon Cancer Sepsis UTI Sibling Skin cancer Cancer Grandparent Cancer Family history of thyroid disease Social History Social History Smoking status: Never smoker Second hand tobacco smoke exposure: No Alcohol intake: never Substance use: never Substance use type: does not use Do You Feel Safe in your Home?: Yes Lack of Transportation: No Lack of Food: Never True Current Housing: I Have Housing Concerned About Future Housing: No Difficulty Paying Gas/Electric Bills: YES Difficulty Paying for Meds: YES Currently Unemployed: No Education: Associate Degree Difficulty w/ Childcare or Family Care: No Living arrangements: with family Additional living arrangements comments: Occupation/Education: occupation 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. Gender identity (if verbalized by the patient): Female Sexual Orientation (if Verbalized by the Patient): Straight or Heterosexual Exam 2 Narrative: APPEARANCE: No apparent distress. Head: atraumatic. EYES: EOMI, NOSE: Atraumatic NECK: Trachea midline RESPIRATORY: No increased rate of breathing clear to auscultation CARDIOVASCULAR: RRR, no peripheral edema ABDOMINAL: Reported tenderness in the right lower quadrant suprapubic region. Exam is severely limited by obesity. MUSCULOSKELETAl: No obvious deformities NEURO: Alert. Moving 4/4 extremities SKIN:: Warm, dry. Normal color PSYCHIATRIC: Normal affect Course Vital Signs Vital signs: Vital Signs Temperature 98.6 F 11/30/24 08:29 Pulse Rate 83 11/30/24 08:29 Respiratory Rate 12 11/30/24 08:29 Blood Pressure 146/74 H 11/30/24 08:29 Pulse Oximetry 97 11/30/24 08:29 Oxygen Delivery Room Air 11/30/24 08:29 Temperature 98.6 F 11/30/24 08:29 Pulse Rate 79 11/30/24 09:39 Respiratory Rate 12 11/30/24 09:39 Blood Pressure 126/70 11/30/24 09:39 Pulse Oximetry 100 11/30/24 09:39 Oxygen Delivery Room Air 11/30/24 08:29 Medical Decision Making MDM Narrative Medical decision making narrative: -Course: 59-year-old female presenting with 1 week of viral symptoms. Vital signs stable. Well-appearing on exam. Some reported right lower quadrant tenderness although exam is severely limited by her body habitus. Laboratory studies and CT abdomen pelvis were unremarkable. Her urinalysis did have 6-10 white blood cells and trace leuk esterase. She is not having any urinary symptoms at this time. I discussed treating for culture negative UTI and the patient has declined. She is comfortable following up with her primary care physician. If she develops any new or worsening symptoms she will return to the ED for re-evaluation. Clinical presentation most consistent with viral illness. -DDX includes but is not limited to: Viral syndrome, appendicitis, UTI, pyelo, sepsis, pneumonia Vital Signs Vital Signs: Vital Signs Temperature 98.6 F 11/30/24 08:29 Pulse Rate 83 11/30/24 08:29 Respiratory Rate 12 11/30/24 08:29 Blood Pressure 146/74 H 11/30/24 08:29 Pulse Oximetry 97 11/30/24 08:29 Oxygen Delivery Room Air 11/30/24 08:29 Temperature 98.6 F 11/30/24 08:29 Pulse Rate 79 11/30/24 09:39 Respiratory Rate 12 11/30/24 09:39 Blood Pressure 126/70 11/30/24 09:39 Pulse Oximetry 100 11/30/24 09:39 Oxygen Delivery Room Air 11/30/24 08:29 Lab Data 11/30/24 08:45 11/30/24 08:45 Labs: Lab Results 11/30/24 11/30/24 Range/Units 08:43 08:45 WBC 4.8 (4.5-10.0) K/mm3 RBC 4.88 (4.2-5.4) M/mm3 Hgb 14.2 (12.0-15.0) g/dL Hct 43.0 (37.0-47.0) % MCV 88.1 (80-100) fl MCH 29.1 (26-34) pg MCHC 33.0 (32-36) g/dl RDW 14.5 (11.5-14.5) % Plt Count 264 (150-375) k/mm3 MPV 8.8 (7.4-10.4) fl Immature Gran % (Auto) 0.6 H (0-0.5) % Neut % (Auto) 60.2 (45.5-73.1) % Lymph % (Auto) 22.9 (18.3-44.2) % Armstrong % (Auto) 8.2 (2.6-8.5) % Eos % (Auto) 7.5 H (0-4.4) % Baso % (Auto) 0.6 (0.2-1.2) % Lymph # (Auto) 1.09 (0.9-3.2) K/mm3 Armstrong # (Auto) 0.4 (0.1-0.6) K/mm3 Eos # (Auto) 0.4 H (0-0.3) K/mm3 Baso # (Auto) 0.0 (0.0-0.1) K/mm3 Abs Immat Gran (auto) 0.03 (0.00-0.031) K/mm3 Absolute Neuts (auto) 2.9 (1.3-6.7) K/mm3 Absolute Nucleated RBC 0.000 (0.0-0.012) K/mm3 Nucleated RBC % 0.0 (0.0-0.2) % Sodium 136 L (137-145) mmol/L Potassium 4.1 (3.4-5.0) mmol/L Chloride 104 (98-107) mmol/L Carbon Dioxide 24 (22-30) mmol/L Anion Gap 8 (4-12) mmol/L BUN 12 (7-17) mg/dL Creatinine 0.70 (0.7-1.0) mg/dL Estim Creat Clear Calc 118 ml/min Estimated GFR > 60 (59 - ) Glucose 117 H (65-110) mg/dL Calcium 8.8 (8.4-10.2) mg/dL Total Bilirubin 0.7 (0.2-1.3) mg/dL AST 33 (14-36) U/L ALT 24 (6-35) U/L Alkaline Phosphatase 85 (38-126) U/L Total Protein 7.0 (6.3-8.2) g/dL Albumin 3.9 (3.5-5.1) g/dL Lipase 62 (23-300) U/L Urine Color Yellow (Yellow) Urine Appearance Clear (Clear) Urine pH 5.5 (5.0-9.0) Ur Specific [place] 1.020 (1.001-1.035) Urine Protein Negative (Negative) mg/dL Urine Glucose (UA) Negative (Negative) mg/dL Urine Ketones Negative (Negative) mg/dL Ur Blood (Man) Negative (Negative) Urine Nitrate Negative (Negative) Urine Bilirubin Negative (Negative) Urine Urobilinogen 1.0 (<2.0) mg/dL Leukocyte Esterase Rfl Trace H (Negative) LACI/UL Urine RBC 0-2 (0-2) /hpf Urine WBC 6-10 H (0-3) /hpf Ur Squamous Epith Cells Occasional (Few) /hpf Urine Bacteria 1+ H /hpf Urine Casts 0-2 Discharge Plan Discharge Clinical Impression: Acute viral syndrome Patient Disposition: Home Condition: Stable Instructions: Antibiotic Form, Viral Syndrome (ED) Additional Instructions: You seen emergency department for a viral syndrome. Please use Motrin as Tylenol as needed. If you develop any worsening symptoms or new symptoms such as fevers chest pain difficulty breathing abdominal pain or urinary symptoms you can return to the ED for re-evaluation. Otherwise please follow-up with your primary care physician. Patient Language: Malagasy Prescriptions: No Action acetaminophen [Tylenol Arthritis Pain] 650 mg tablet extended release 650 mg PO Q12H lisinopril 10 mg tablet 10 mg PO DAILY Qty: 90 3RF clobetasol 0.05 % ointment 1 applic topical BID Qty: 30 1RF fluconazole 200 mg tablet 200 mg PO DAILY Qty: 3 3RF ondansetron HCl 4 mg tablet 4 mg PO Q8H PRN (Reason: nausea and vomiting) Qty: 20 0RF metformin 500 mg tablet extended release 24 hr 2,000 mg PO DAILY Qty: 360 3RF tramadol 50 mg tablet 50 mg PO Q8H PRN (Reason: pain) Qty: 60 0RF eszopiclone [Lunesta] 1 mg tablet 1 mg PO QHS Qty: 20 0RF (DME) blood sugar diagnostic Strip See Rx Instructions .Route Qty: 100 1RF Rx Instructions: As directed for blood glucose monitoring AC & HS simvastatin 20 mg tablet See Rx Instructions .ROUTE .COMPLEX Qty: 90 3RF Dose Instruction: TAKE 1 TABLET BY MOUTH EVERY DAY IN THE EVENING Rx Instructions: TAKE 1 TABLET BY MOUTH EVERY DAY IN THE EVENING meloxicam 15 mg tablet 15 mg PO DAILY Qty: 90 3RF albuterol sulfate 90 mcg/actuation HFA aerosol inhaler 1 inh inhalation Q4H PRN (Reason: shortness of breath or wheezing) Qty: 8.5 0RF Ozempic 1 mg/dose (4 mg/3 mL) pen injector 1 mg subcut WEEKLY Qty: 3 2RF Follow-up/Referrals: Charles Sadler MD [Primary Care Provider, Family Practice]
--- OUTSIDE RECORDS SUMMARY | 2024-11-30 09:49 | XMS_ITS | Encounter Summary ---
Author Organization [facility] Address [address] [facility] [address] [place] [address] Phone Care Team Providers Care Supervisor Hot Dip Tinning Name Role Phone Charles Sadler MD Primary Care Provider + [phone] Sal Elmore MD Unavailable Reason for Visit * Reason Onset Date Comments Scheduling Appointments 11/21/2024 Encounter Details Date Type Department Care Team (Late st Contact Info) Description 11/21/2024 Telephone [facility] Medicine Surgery [address] [facility] Floor [address] [place] [address] Mariangel Cabrera MD PhD [address] [facility] [phone] [place] [address] Scheduling Appointments Social History Tobacco Use Types [...] them to contact for a call back: [phone] Last office visit: 11/21/2024 Date of Surgery: 12/23/2020 documented in this encounter Plan of Treatment Not on file documented as of this encounter Visit Diagnoses Not on filedocumented in this encounter Care Teams Supervisor Hot Dip Tinning Relationship Specialty Start Date End Date Charles Sadler MD PCP - General Family Medicine 09/23/20 Sal Elmore MD Consulting Physician General Surgery 12/25/20 documented as of this encounter
--- OUTSIDE RECORDS SUMMARY | 2024-11-30 09:49 | XMS_ITS | Clinical Summary ---
Author Organization [facility] Address [address] [place] [phone] Care Team Providers Care Receiving Lead Name Role Phone Charles Sadler MD Primary Care Provider [phone] Sal Elmore MD Unavailable Allergies Active Allergy [...] 12/21/2020 Assessment & Plan (01/23/2021 9:00 AM ELEVATOR WORKER): The cavity is about 90% smaller than last visit. We discussed doing the packing for another 4 or 5 days and then she Should be able to stop. She will call us with any further questions or concerns. Assessment & Plan (01/09/2021 8:41 AM ELEVATOR WORKER): The cavity is about 75% smaller than [...] (11/13/2020): Added automatically from request for surgery [id number] Diabetes Overweight Generalized headaches Resolved Problems Problem Noted Date Diagnosed Date Resolved Date Surgical wound infection 12/22/2020 Encounters Date Type Department Care Team Description 11/24/2024 Orders Only [facility] Medicine Surgery [address] [facility] [address] [place] [address] Mariangel Cabrera MD PhD Hx of abscess of breast (Primary Dx) 11/24/2024 Telephone [facility] Medicine Surgery [address] [place] [phone] Mariangel Cabrera MD PhD 11/21/2024 Telephone [facility] Medicine Surgery [address] [place] [phone] Mariangel Cabrera MD PhD Scheduling Appointments 11/21/2024 Telephone [facility] Surgery [address] [place] [phone] Mariangel Cabrera MD PhD Scheduling Appointments 11/21/2024 Orders Only [facility] Surgery [address] [place] [phone] Mariangel Cabrera MD PhD 11/21/2024 Telephone [facility] Medicine Surgery [address] [place] [phone] Mariangel Cabrera MD PhD Scheduling Appointments 11/09/2024 Telephone [facility] Surgery [address] [place] [phone] Mariangel Cabrera MD PhD Scheduling Appointments from [...] Comments Blood Pressure 137/78 01/23/2021 8:50 AM ELEVATOR WORKER Pulse 68 01/23/2021 8:50 AM ELEVATOR WORKER Temperature 35.8 C (96.4 F) 01/23/2021 8:50 AM ELEVATOR WORKER Respiratory Rate 18 12/25/2020 11:0 0 AM ELEVATOR WORKER Oxygen Saturation 98% 01/23/2021 8:50 AM ELEVATOR WORKER Inhaled Oxygen Concentration - - Weight 147.7 kg (325 lb 9.9 oz) 12/25/2021 9:55 AM ELEVATOR WORKER Height 172.7 cm (5' 7.99) 12/25/2021 9:55 AM CS T Body Mass Index 49.52 12/25/2021 9:55 AM ELEVATOR WORKER Plan of Treatment Health Maintenance Due Date [...] Read Routine (OP Routine) 02/20/2023 10:28 AM ELEVATOR WORKER Screening mammogram, encounter for EGFR Routine 12/25/2020 7:38 AM ELEVATOR WORKER from Last 3 Months or Most Recently Relevant to Health Maintenance Results * Screening Mammogram Bilateral W Ronald (02/20/2023 10:28 AM ELEVATOR WORKER) Anatomical Region Laterality Modality Breast Bilateral Mammography Narrative 02/22/2023 2:23 PM ELEVATOR WORKER Mammogram Technique: Bilateral Digital Breast Tomosynthesis, Bilateral C-view 2D Screening mammogram. Views obtained: bilateral craniocaudal and bilateral mediolateral oblique. Computer Aided Detection was performed. Mammogram Findings: The present examination has been compared to prior imaging studies performed at [facility] on 10/21/2020 and 12/25/2021. The breasts are [...] compared to prior imaging studies performed at [facility] on 10/21/2020 and 12/25/2021. The breasts are almost entirely fatty. There is no suspicious abnormality in either breast. Impression: There is no mammographic evidence of malignancy. Annual screening mammography is recommended. OVERALL FINAL ASSESSMENT: BI-RADS CATEGORY 1: Negative. us Self Screening Mammogram IMG MAMMO PROCEDURES Fi nal Result * eGFR (12/25/2020 7:38 AM ELEVATOR WORKER) eGFR 101 mL/min/1.7 3 m2 DAVIS DEE [...] last reviewed 2020 Blood 12/25/2020 7:38 AM ELEVATOR WORKER 12/25/2020 7:44 AM ELEVATOR WORKER Sal Elmore MD LAB BLOOD ORDERA BLES Final Result Performing Organization Address City/State/[facility] Co de Phone Number [facility] Department [place] [address] from Last 3 Months or Most Recently Relevant to Health Maintenance Insurance [facility] [id number] [employer] Advance Directives For more information, please contact: [phone] * Full Code (Latest Code Status on File) Date Activated Date Inactivated Comments 12/21/2020 9:11 PM 12/25/2020 6:23 PM Care Teams Receiving Lead Relationship Specialty Start Date End Date Charles Sadler MD PCP - General Family Medicine 09/23/20 Sal Elmore MD Consulting Physician General Surgery 12/25/20
--- OUTSIDE RECORDS SUMMARY | 2024-11-30 09:49 | XMS_ITS | Encounter Summary ---
Author Organization [facility] Address [address] [facility] [address] [place] [address] Phone Care Team Providers Care Kettle Cook Name Role Phone Charles Sadler MD Primary Care Provider + [phone] Sal Elmore MD Unavailable Reason for Visit * Reason Onset Date Comments Scheduling Appointments 11/21/2024 Encounter Details Date Type Department Care Team (Late st Contact Info) Description 11/21/2024 Telephone [facility] Medicine Surgery [address] [facility] Floor 8 [place] [address] Mariangel Cabrera MD PhD [address] [facility] [phone] [place] [address] Scheduling Appointments Social History Tobacco Use Types [...] on filedocumented in this encounter Care Teams Kettle Cook Relationship Specialty Start Date End Date Charles Sadler MD PCP - General Family Medicine 09/23/20 Sal Elmore MD Consulting Physician General Surgery 12/25/20 documented as of this encounter
--- OUTSIDE RECORDS SUMMARY | 2024-11-30 09:49 | XMS_ITS | Encounter Summary ---
Author Organization [facility] Address [address] [facility] [address] [place] [address] Phone Care Team Providers Care Filter Tank Operator Name Role Phone Charles Sadler MD Primary Care Provider + [phone] Sal Elmore MD Unavailable Reason for Visit * Reason Onset Date Comments Scheduling Appointments 11/21/2024 Encounter Details Date Type Department Care Team (Late st Contact Info) Description 11/21/2024 Telephone [facility] Medicine Surgery [address] [facility] Floor [address] [place] [address] Mariangel Cabrera MD PhD [address] [facility] [phone] [place] [address] Scheduling Appointments Social History Tobacco Use Types [...] on filedocumented in this encounter Care Teams Filter Tank Operator Relationship Specialty Start Date End Date Charles Sadler MD PCP - General Family Medicine 09/23/20 Sal Elmore MD Consulting Physician General Surgery 12/25/20 documented as of this encounter
[2024-11-30 10:19] VITALS: BP 129/78; PULSE 80; RESP 13; O2SAT 100
[2024-11-30] MEDS: KETOROLAC 15 MG/ML VIAL (*BKC) IV PUSH (10:20)
[2024-11-30 10:47] LABS: Influenza A QL RT-PCR Negative (Negative); Influenza B QL RT-PCR Negative (Negative); RSV RNA, RT-PCR Negative (Negative); SARS-CoV-2 RNA PCR Negative (Negative)
[2024-11-30 10:58] VITALS: BP 115/62; PULSE 78; RESP 16; O2SAT 100
[2024-11-30 11:31] VITALS: BP 134/72; PULSE 78; RESP 17; TEMP 36.5; O2SAT 99
== END 2024-11-30 11:33 | disposition home or self-care (01) ==
PROVIDERS: Emergency Provider Emergency Medicine; PCP Family Medicine
DX: B34.9 Viral infection, unspecified (principal); E11.9 Type 2 diabetes mellitus without complications; I10 Essential (primary) hypertension; E78.5 Hyperlipidemia, unspecified; E66.01 Morbid (severe) obesity due to excess calories; Z68.43 Body mass index [BMI] 50.0-59.9, adult
CPT/HCPCS: 36415; 71045; 74177; 80053; 81001; 83690; 85025; 87086; 87637; 96361; 96374; 99284; J1885; J7030; Q9967